=== PATIENT | male | born 1960 | race Caucasian/White ===

== ENCOUNTER 2022-11-02 08:32 | Inpatient (IN) | payer OTHER ==
[~2022-11-02] VITALS: Ht 165.1 cm; Wt 79.8 kg
[2022-11-02 09:14] LABS: BASOPHILS # (AUTO) 0.1 K/uL (0.0-0.2); EOSINOPHILS # (AUTO) 0.2 K/uL (0.0-0.7); EOSINOPHILS % (AUTO) 1.6 % (0.0-6.0); HEMATOCRIT 24 % (39-51); HEMOGLOBIN 7.9 g/dL (13.5-17.5); LYMPHOCYTES # (AUTO) 0.7 K/uL (0.8-4.8); LYMPHOCYTES % (AUTO) 6.3 % (20.0-44.0); MEAN CORPUSCULAR HEMOGLOBIN 28 PG (26.0-33.0); MEAN CORPUSCULAR HGB CONC 33 g/dl (31.0-36.0); MEAN CORPUSCULAR VOLUME 86 fL (80-96); MONOCYTES # (AUTO) 0.5 K/uL (0.1-1.30); MONOCYTES % (AUTO) 4.9 % (2.0-12.0); NEUTROPHILS # (AUTO) 9.6 K/uL (1.8-8.9); NEUTROPHILS % (AUTO) 86.2 % (43.0-81.0); PLATELET COUNT (AUTO) 308 K/uL (150-450); RED BLOOD CELL COUNT(AUTO) 2.82 MIL/uL (4.5-6.0); RED CELL DISTRIBUTION WIDTH 18.3 % (11.5-15.0); WHITE BLOOD COUNT (AUTO) 11.1 K/uL (4.3-11.0)
[2022-11-02 09:31] LABS: CALCIUM, SERUM 8.1 mg/dL (8.5-10.1); CREATININE 2.4 mg/dL (0.6-1.3); POTASSIUM 4.4 mmol/L (3.5-5.1)
[2022-11-02 09:37] LABS: ALBUMIN 1.7 g/dL (3.4-5.0); BILIRUBIN,DIRECT 0.3 mg/dL (0.0-0.2); BILIRUBIN,TOTAL 0.6 mg/dL (0.2-1.0); INR 1.52 (0.91-1.10); PARTIAL THROMBOPLASTIN TIME 32.3 SEC (24.3-34.3); PROTHROMBIN TIME 15.6 SECS (9.2-11.1); TOTAL PROTEIN, SERUM 7.1 g/dL (6.4-8.2)
[2022-11-02] MEDS ORDERED: CLOP75TA15 PO (09:43)
[2022-11-02] MEDS ORDERED: PROTEIN LIQUID PO (09:43)
[2022-11-02] MEDS ORDERED: OXYC5TAB3 PO (09:43)
[2022-11-02] MEDS ORDERED: POVI3780 TP (09:43)
[2022-11-02] MEDS ORDERED: PETR113O TP (09:43)
[2022-11-02] MEDS ORDERED: GABA-532 PO (09:43)
[2022-11-02] MEDS ORDERED: ASPI-992 PO (09:43)
[2022-11-02] MEDS ORDERED: INSU100V39 SQ (09:43)
[2022-11-02] MEDS ORDERED: CARV3.122 PO (09:43)
[2022-11-02] MEDS ORDERED: ASCO-340 PO (09:43)
[2022-11-02] MEDS ORDERED: FERR325T23 PO (09:43)
[2022-11-02] MEDS ORDERED: ZINC220C6 PO (09:43)
[2022-11-02] MEDS ORDERED: MULT-213 PO (09:43)
[2022-11-02] MEDS ORDERED: MIDO10TA PO (09:43)
[2022-11-02] MEDS ORDERED: MENT113O6 TP (09:43)
[2022-11-02] MEDS ORDERED: INSU100V7 SQ (09:43)
[2022-11-02] MEDS ORDERED: PANT40TA2 PO (09:43)
[2022-11-02] MEDS ORDERED: ONDANSETRON HCL/PF 4 MG/2 ML VIAL IVP PRN (15:00)
[2022-11-02] MEDS ORDERED: ACETAMINOPHEN 325 MG TABLET PO PRN (15:00)
[2022-11-02] MEDS ORDERED: ZOLPIDEM TARTRATE 5 MG TABLET PO PRN (15:00)
[2022-11-02] MEDS ORDERED: Z GUARD REMEDY 4 OZ OINT TP PRN (15:00)
[2022-11-02] MEDS ORDERED: MAG HYDROX/AL HYDROX/SIMETH 30 ML UDC PO PRN (15:00)
[2022-11-02] MEDS ORDERED: MAGNESIUM HYDROXIDE 30 ML UDC PO PRN (15:00)
[2022-11-02 16:00] VITALS: BP 86/64; TEMP 98.1; O2SAT 100
[2022-11-02 16:48] LABS: HEMOGLOBIN 5.8 g/dL (13.5-17.5)
[2022-11-02] MEDS ORDERED: FERROUS SULFATE (325 MG) 325 MG/TAB TABLET PO SCH (17:30)
[2022-11-02] MEDS ORDERED: DESMOPRESSIN 20 MCG in IV NS 0.9% 50 ML IV ONE (18:00)
[2022-11-02 20:00] VITALS: BP 91/57; TEMP 97.7; O2SAT 100
[2022-11-02] MEDS: GABAPENTIN 100 MG CAPSULE PO SCH (23:11)
[2022-11-03] VITALS (10 sets, daily range): BP systolic 90–103; BP diastolic 55–65; TEMP 97.3–98.2; O2SAT 94–100
[2022-11-03 00:12] LABS: HEMOGLOBIN 5.9 g/dL (13.5-17.5)
[2022-11-03 05:46] LABS: BASOPHILS % (AUTO) 0.3 % (0.0-2.0); EOSINOPHILS # (AUTO) 0.1 K/uL (0.0-0.7); EOSINOPHILS % (AUTO) 0.5 % (0.0-6.0); HEMATOCRIT 22 % (39-51); LYMPHOCYTES # (AUTO) 0.9 K/uL (0.8-4.8); LYMPHOCYTES % (AUTO) 8.4 % (20.0-44.0); MEAN CORPUSCULAR HEMOGLOBIN 28 PG (26.0-33.0); MEAN CORPUSCULAR HGB CONC 32 g/dl (31.0-36.0); MEAN CORPUSCULAR VOLUME 87 fL (80-96); MONOCYTES # (AUTO) 0.6 K/uL (0.1-1.30); MONOCYTES % (AUTO) 5.7 % (2.0-12.0); NEUTROPHILS # (AUTO) 9.4 K/uL (1.8-8.9); NEUTROPHILS % (AUTO) 85.1 % (43.0-81.0); PLATELET COUNT (AUTO) 173 K/uL (150-450); RED BLOOD CELL COUNT(AUTO) 2.52 MIL/uL (4.5-6.0); RED CELL DISTRIBUTION WIDTH 17.7 % (11.5-15.0)
[2022-11-03 06:00] LABS: CALCIUM, SERUM 8.1 mg/dL (8.5-10.1); CREATININE 2.5 mg/dL (0.6-1.3); MAGNESIUM 2.2 mg/dL (1.8-2.4); PHOSPHORUS 7.1 mg/dL (2.5-4.9); POTASSIUM 5.7 mmol/L (3.5-5.1)
[2022-11-03] MEDS ORDERED: PANTOPRAZOLE 40 MG TABLET.DR PO SCH (07:30)
[2022-11-03] MEDS: ZINC SULFATE 220 MG CAPSULE PO SCH (08:56)
[2022-11-03] MEDS: MIDODRINE HCL (5MG) 5 MG TABLET PO SCH ×3 (08:56→18:00)
[2022-11-03] MEDS: MULTIVIT W/MINERALS 1 TAB TABLET PO SCH (08:56)
[2022-11-03] MEDS: GABAPENTIN 100 MG CAPSULE PO SCH ×2 (08:56→21:28)
[2022-11-03] MEDS: ASCORBIC ACID 500 MG TABLET PO SCH (08:57)
[2022-11-03] MEDS: CARVEDILOL 3.125 MG TABLET PO SCH ×2 (09:00→17:00)
[2022-11-03] MEDS: PROSOURCE / PROSTAT (PYXIS) 30 ML UDC PO SCH (09:04)
[2022-11-03] MEDS: INSULIN GLARGINE, 100 UNIT/ML CARTRIDGE SQ SCH (09:08)
[2022-11-03] MEDS: VITS A AND D/WHITE PET/LANOLIN 5 GM PACKET TP SCH (10:05)
[2022-11-03] MEDS: DAKINS QUARTER STRENGTH (0.125%) 480 ML BOTTLE TOP SCH (10:05)
[2022-11-03] MEDS: ZINC OXIDE 30 GM TUBE TP SCH (10:06)
[2022-11-03] MEDS ORDERED: ALBUMIN 25% 12.5 GM/50 ML BOTTLE IV ONE (11:30)
[2022-11-03] MEDS ORDERED: SODIUM POLYSTYRENE SULFONATE 15 G/60 ML BOTTLE PO ONE ×2 (11:30→17:00)
[2022-11-03] MEDS ORDERED: ALBUMIN 25% 25 GM in PREMIX 1 EA IV ONE (12:00)
[2022-11-03 16:26] LABS: CALCIUM, SERUM 8.5 mg/dL (8.5-10.1); CREATININE 2.5 mg/dL (0.6-1.3); POTASSIUM 5.1 mmol/L (3.5-5.1)
[2022-11-03] MEDS: POVIDONE IODINE TOP SCH (18:03)
[2022-11-03 23:18] LABS: HEMOGLOBIN 6.8 g/dL (13.5-17.5)
[2022-11-04] VITALS (7 sets, daily range): BP systolic 85–125; BP diastolic 57–80; TEMP 97.5–98.3; O2SAT 95–100
[2022-11-04 00:04] LABS: OCCULT BLOOD STOOL POSITIVE (NEGATIVE)
[2022-11-04 04:13] LABS: BASOPHILS # (AUTO) 0.1 K/uL (0.0-0.2); BASOPHILS % (AUTO) 0.7 % (0.0-2.0); EOSINOPHILS # (AUTO) 0.2 K/uL (0.0-0.7); EOSINOPHILS % (AUTO) 1.9 % (0.0-6.0); HEMATOCRIT 24 % (39-51); LYMPHOCYTES # (AUTO) 0.5 K/uL (0.8-4.8); LYMPHOCYTES % (AUTO) 5.1 % (20.0-44.0); MEAN CORPUSCULAR HEMOGLOBIN 29 PG (26.0-33.0); MEAN CORPUSCULAR HGB CONC 33 g/dl (31.0-36.0); MEAN CORPUSCULAR VOLUME 87 fL (80-96); MONOCYTES # (AUTO) 0.5 K/uL (0.1-1.30); MONOCYTES % (AUTO) 4.6 % (2.0-12.0); NEUTROPHILS % (AUTO) 87.7 % (43.0-81.0); PLATELET COUNT (AUTO) 144 K/uL (150-450); RED BLOOD CELL COUNT(AUTO) 2.76 MIL/uL (4.5-6.0); RED CELL DISTRIBUTION WIDTH 17.9 % (11.5-15.0); WHITE BLOOD COUNT (AUTO) 10.2 K/uL (4.3-11.0)
[2022-11-04 04:19] LABS: CALCIUM, SERUM 8.4 mg/dL (8.5-10.1); CREATININE 2.2 mg/dL (0.6-1.3); MAGNESIUM 2.1 mg/dL (1.8-2.4); PHOSPHORUS 5.9 mg/dL (2.5-4.9); POTASSIUM 4.9 mmol/L (3.5-5.1)
[2022-11-04] MEDS: PANTOPRAZOLE 40 MG VIAL IV SCH ×3 (08:38→17:42)
[2022-11-04] MEDS: CARVEDILOL 3.125 MG TABLET PO SCH ×2 (09:00→17:43)
[2022-11-04] MEDS: MIDODRINE HCL (5MG) 5 MG TABLET PO SCH ×3 (09:05→17:00)
[2022-11-04] MEDS: MULTIVIT W/MINERALS 1 TAB TABLET PO SCH (09:07)
[2022-11-04] MEDS: ZINC SULFATE 220 MG CAPSULE PO SCH (09:07)
[2022-11-04] MEDS: ASCORBIC ACID 500 MG TABLET PO SCH (09:07)
[2022-11-04] MEDS: GABAPENTIN 100 MG CAPSULE PO SCH ×2 (09:07→20:49)
[2022-11-04] MEDS: PROSOURCE / PROSTAT (PYXIS) 30 ML UDC PO SCH (09:17)
[2022-11-04] MEDS: DAKINS QUARTER STRENGTH (0.125%) 480 ML BOTTLE TOP SCH (09:18)
[2022-11-04] MEDS: ZINC OXIDE 30 GM TUBE TP SCH (09:20)
[2022-11-04] MEDS: VITS A AND D/WHITE PET/LANOLIN 5 GM PACKET TP SCH (09:20)
[2022-11-04] MEDS: POVIDONE IODINE TOP SCH (09:23)
[2022-11-04 09:26] LABS: ALBUMIN 2.5 g/dL (3.4-5.0); BILIRUBIN,DIRECT 0.6 mg/dL (0.0-0.2); BILIRUBIN,TOTAL 1.3 mg/dL (0.2-1.0); TOTAL PROTEIN, SERUM 6.8 g/dL (6.4-8.2)
[2022-11-04] MEDS: INSULIN GLARGINE, 100 UNIT/ML CARTRIDGE SQ SCH (09:41)
[2022-11-04 14:32] LABS: HEMOGLOBIN 9.4 g/dL (13.5-17.5)
[2022-11-04] MEDS: ARGININE/GLUTAMINE/CALCIUM BMB 1 EACH POWD.PACK PO SCH (17:43)
[2022-11-04 22:29] LABS: HEMOGLOBIN 8.9 g/dL (13.5-17.5)
[2022-11-05 00:30] VITALS: BP 106/73; TEMP 98.1; O2SAT 96
[2022-11-05 05:51] LABS: BASOPHILS # (AUTO) 0.1 K/uL (0.0-0.2); BASOPHILS % (AUTO) 0.6 % (0.0-2.0); EOSINOPHILS # (AUTO) 0.2 K/uL (0.0-0.7); EOSINOPHILS % (AUTO) 2.6 % (0.0-6.0); HEMATOCRIT 27 % (39-51); HEMOGLOBIN 8.9 g/dL (13.5-17.5); LYMPHOCYTES # (AUTO) 0.7 K/uL (0.8-4.8); LYMPHOCYTES % (AUTO) 7.2 % (20.0-44.0); MEAN CORPUSCULAR HEMOGLOBIN 29 PG (26.0-33.0); MEAN CORPUSCULAR HGB CONC 34 g/dl (31.0-36.0); MEAN CORPUSCULAR VOLUME 87 fL (80-96); MONOCYTES # (AUTO) 0.6 K/uL (0.1-1.30); MONOCYTES % (AUTO) 6.6 % (2.0-12.0); NEUTROPHILS # (AUTO) 7.6 K/uL (1.8-8.9); PLATELET COUNT (AUTO) 151 K/uL (150-450); RED BLOOD CELL COUNT(AUTO) 3.08 MIL/uL (4.5-6.0); RED CELL DISTRIBUTION WIDTH 18.1 % (11.5-15.0); WHITE BLOOD COUNT (AUTO) 9.2 K/uL (4.3-11.0)
[2022-11-05 06:12] LABS: ALBUMIN 2.4 g/dL (3.4-5.0); BILIRUBIN,TOTAL 0.8 mg/dL (0.2-1.0); CALCIUM, SERUM 8.4 mg/dL (8.5-10.1); POTASSIUM 3.8 mmol/L (3.5-5.1); TOTAL PROTEIN, SERUM 6.9 g/dL (6.4-8.2)
[2022-11-05] MEDS ORDERED: LIDOCAINE 1%-EPI 1:100,000 50 ML VIAL IJ ONE (07:30)
[2022-11-05] MEDS ORDERED: SILVER NITRATE APPLICATOR 1 EA BOX TP SCH (07:30)
[2022-11-05 08:00] VITALS: BP 99/66; TEMP 98.2; O2SAT 100
[2022-11-05] MEDS: CARVEDILOL 3.125 MG TABLET PO SCH ×2 (09:00→17:55)
[2022-11-05] MEDS: MULTIVIT W/MINERALS 1 TAB TABLET PO SCH (10:32)
[2022-11-05] MEDS: ASCORBIC ACID 500 MG TABLET PO SCH (10:32)
[2022-11-05] MEDS: PANTOPRAZOLE 40 MG VIAL IV SCH (10:32)
[2022-11-05] MEDS: MIDODRINE HCL (5MG) 5 MG TABLET PO SCH ×3 (10:33→17:00)
[2022-11-05] MEDS: GABAPENTIN 100 MG CAPSULE PO SCH ×2 (10:33→20:43)
[2022-11-05] MEDS: ZINC SULFATE 220 MG CAPSULE PO SCH (10:33)
[2022-11-05] MEDS: PROSOURCE / PROSTAT (PYXIS) 30 ML UDC PO SCH (10:35)
[2022-11-05] MEDS: ARGININE/GLUTAMINE/CALCIUM BMB 1 EACH POWD.PACK PO SCH ×2 (10:35→17:54)
[2022-11-05] MEDS: DAKINS QUARTER STRENGTH (0.125%) 480 ML BOTTLE TOP SCH (10:37)
[2022-11-05] MEDS: POVIDONE IODINE TOP SCH (10:38)
[2022-11-05] MEDS: VITS A AND D/WHITE PET/LANOLIN 5 GM PACKET TP SCH (10:38)
[2022-11-05] MEDS: ZINC OXIDE 30 GM TUBE TP SCH (10:38)
[2022-11-05] MEDS: INSULIN GLARGINE, 100 UNIT/ML CARTRIDGE SQ SCH (10:45)
[2022-11-05] MEDS ORDERED: PANT40TA49 PO (12:39)
[2022-11-05 14:45] LABS: HEMOGLOBIN 8.9 g/dL (13.5-17.5)
[2022-11-05 16:00] VITALS: BP 104/21; TEMP 98.2; O2SAT 100
[2022-11-05] MEDS: PANTOPRAZOLE 40 MG TABLET.DR PO SCH (17:55)
[2022-11-05 20:00] VITALS: BP 115/71; TEMP 97.9; O2SAT 100
[2022-11-05 22:38] LABS: HEMOGLOBIN 8.6 g/dL (13.5-17.5)
[2022-11-06] VITALS: BP 110/75; TEMP 97.3; O2SAT 96
[2022-11-06 04:00] VITALS: BP 102/76; TEMP 97.7; O2SAT 99
[2022-11-06 06:21] LABS: BASOPHILS % (AUTO) 0.4 % (0.0-2.0); EOSINOPHILS # (AUTO) 0.1 K/uL (0.0-0.7); EOSINOPHILS % (AUTO) 1.1 % (0.0-6.0); HEMATOCRIT 25 % (39-51); HEMOGLOBIN 8.4 g/dL (13.5-17.5); LYMPHOCYTES # (AUTO) 0.8 K/uL (0.8-4.8); LYMPHOCYTES % (AUTO) 7.3 % (20.0-44.0); MEAN CORPUSCULAR HEMOGLOBIN 29 PG (26.0-33.0); MEAN CORPUSCULAR HGB CONC 33 g/dl (31.0-36.0); MEAN CORPUSCULAR VOLUME 87 fL (80-96); MONOCYTES # (AUTO) 0.7 K/uL (0.1-1.30); MONOCYTES % (AUTO) 6.9 % (2.0-12.0); NEUTROPHILS # (AUTO) 8.7 K/uL (1.8-8.9); NEUTROPHILS % (AUTO) 84.3 % (43.0-81.0); PLATELET COUNT (AUTO) 137 K/uL (150-450); RED CELL DISTRIBUTION WIDTH 17.7 % (11.5-15.0); WHITE BLOOD COUNT (AUTO) 10.3 K/uL (4.3-11.0)
[2022-11-06 08:00] VITALS: BP 104/72; TEMP 97.5; O2SAT 99
[2022-11-06 08:20] LABS: CALCIUM, SERUM 7.8 mg/dL (8.5-10.1); CREATININE 2.1 mg/dL (0.6-1.3)
[2022-11-06] MEDS: ZINC SULFATE 220 MG CAPSULE PO SCH ×2 (08:51→09:00)
[2022-11-06] MEDS: MULTIVIT W/MINERALS 1 TAB TABLET PO SCH ×2 (08:51→09:00)
[2022-11-06] MEDS: MIDODRINE HCL (5MG) 5 MG TABLET PO SCH ×4 (08:51→16:46)
[2022-11-06] MEDS: ASCORBIC ACID 500 MG TABLET PO SCH ×2 (08:51→09:00)
[2022-11-06] MEDS: PANTOPRAZOLE 40 MG TABLET.DR PO SCH ×3 (08:51→18:08)
[2022-11-06] MEDS: CARVEDILOL 3.125 MG TABLET PO SCH ×2 (08:52→18:07)
[2022-11-06] MEDS: PROSOURCE / PROSTAT (PYXIS) 30 ML UDC PO SCH ×2 (08:53→09:00)
[2022-11-06] MEDS: ARGININE/GLUTAMINE/CALCIUM BMB 1 EACH POWD.PACK PO SCH ×3 (08:53→18:08)
[2022-11-06] MEDS: GABAPENTIN 100 MG CAPSULE PO SCH ×3 (08:53→22:00)
[2022-11-06] MEDS: INSULIN GLARGINE, 100 UNIT/ML CARTRIDGE SQ SCH ×2 (09:00→18:08)
[2022-11-06] MEDS: VITS A AND D/WHITE PET/LANOLIN 5 GM PACKET TP SCH (09:57)
[2022-11-06] MEDS: ZINC OXIDE 30 GM TUBE TP SCH (09:57)
[2022-11-06] MEDS: POVIDONE IODINE TOP SCH (09:57)
[2022-11-06] MEDS: DAKINS QUARTER STRENGTH (0.125%) 480 ML BOTTLE TOP SCH (09:57)
[2022-11-06] MEDS ORDERED: DEXTROSE 50%-WATER 50 ML DISP.SYRIN IV PRN (10:30)
[2022-11-06 10:31] LABS: ALBUMIN 2.1 g/dL (3.4-5.0); BILIRUBIN,TOTAL 0.6 mg/dL (0.2-1.0); TOTAL PROTEIN, SERUM 6.7 g/dL (6.4-8.2)
[2022-11-06] MEDS ORDERED: LACTULOSE 10 G/15 ML UDC (PYXIS) PR SCH (12:00)
[2022-11-06] MEDS: BLOOD SUGAR DIAGNOSTIC 1 EACH STRIP IN SCH ×3 (12:37→22:45)
[2022-11-06] MEDS: INSULIN REGULAR, HUMAN 100 UNIT/ML 3 ML VIAL SQ PRN ×2 (12:48→18:10)
[2022-11-06] MEDS: LACTULOSE UDC 200 G in SODIUM CHLORIDE IRRIG SOLUTION 400 ML IR SCH ×4 (13:46→22:00)
[2022-11-06 14:25] LABS: HEMOGLOBIN 8.8 g/dL (13.5-17.5)
[2022-11-06 16:00] VITALS: BP 116/83; TEMP 98.4; O2SAT 96
[2022-11-06 19:30] VITALS: BP 128/77; TEMP 97; O2SAT 99
[2022-11-06 22:35] LABS: HEMOGLOBIN 9.2 g/dL (13.5-17.5)
[2022-11-07 05:57] LABS: BASOPHILS # (AUTO) 0.1 K/uL (0.0-0.2); BASOPHILS % (AUTO) 0.8 % (0.0-2.0); EOSINOPHILS # (AUTO) 0.1 K/uL (0.0-0.7); EOSINOPHILS % (AUTO) 1.5 % (0.0-6.0); HEMATOCRIT 28 % (39-51); LYMPHOCYTES # (AUTO) 0.8 K/uL (0.8-4.8); LYMPHOCYTES % (AUTO) 8.8 % (20.0-44.0); MEAN CORPUSCULAR HEMOGLOBIN 29 PG (26.0-33.0); MEAN CORPUSCULAR HGB CONC 33 g/dl (31.0-36.0); MEAN CORPUSCULAR VOLUME 90 fL (80-96); MONOCYTES # (AUTO) 0.6 K/uL (0.1-1.30); MONOCYTES % (AUTO) 6.9 % (2.0-12.0); NEUTROPHILS # (AUTO) 7.5 K/uL (1.8-8.9); PLATELET COUNT (AUTO) 125 K/uL (150-450); RED BLOOD CELL COUNT(AUTO) 3.09 MIL/uL (4.5-6.0); RED CELL DISTRIBUTION WIDTH 18.7 % (11.5-15.0); WHITE BLOOD COUNT (AUTO) 9.2 K/uL (4.3-11.0)
[2022-11-07 06:26] LABS: ALBUMIN 1.9 g/dL (3.4-5.0); BILIRUBIN,TOTAL 0.8 mg/dL (0.2-1.0); CALCIUM, SERUM 8.3 mg/dL (8.5-10.1); CREATININE 1.9 mg/dL (0.6-1.3); POTASSIUM 3.9 mmol/L (3.5-5.1); TOTAL PROTEIN, SERUM 6.7 g/dL (6.4-8.2)
[2022-11-07] MEDS: BLOOD SUGAR DIAGNOSTIC 1 EACH STRIP IN SCH ×4 (07:37→21:49)
[2022-11-07 08:00] VITALS: BP 99/70; TEMP 97.8; O2SAT 99
[2022-11-07] MEDS: MULTIVIT W/MINERALS 1 TAB TABLET PO SCH (08:36)
[2022-11-07] MEDS: RIFAXIMIN 550 MG TABLET PO SCH ×2 (08:36→16:07)
[2022-11-07] MEDS: MIDODRINE HCL (5MG) 5 MG TABLET PO SCH ×3 (08:37→16:07)
[2022-11-07] MEDS: GABAPENTIN 100 MG CAPSULE PO SCH ×2 (08:37→21:09)
[2022-11-07] MEDS: ASCORBIC ACID 500 MG TABLET PO SCH (08:37)
[2022-11-07] MEDS: CARVEDILOL 3.125 MG TABLET PO SCH ×2 (08:37→16:08)
[2022-11-07] MEDS: ZINC SULFATE 220 MG CAPSULE PO SCH (08:37)
[2022-11-07] MEDS: PANTOPRAZOLE 40 MG TABLET.DR PO SCH ×2 (08:37→16:07)
[2022-11-07] MEDS: ARGININE/GLUTAMINE/CALCIUM BMB 1 EACH POWD.PACK PO SCH ×2 (08:38→16:09)
[2022-11-07] MEDS: PROSOURCE / PROSTAT (PYXIS) 30 ML UDC PO SCH (08:38)
[2022-11-07] MEDS: LACTULOSE 10 G/15 ML UDC (PYXIS) PO SCH ×2 (08:40→16:06)
[2022-11-07] MEDS: DAKINS QUARTER STRENGTH (0.125%) 480 ML BOTTLE TOP SCH (09:06)
[2022-11-07] MEDS: ZINC OXIDE 30 GM TUBE TP SCH (09:07)
[2022-11-07] MEDS: VITS A AND D/WHITE PET/LANOLIN 5 GM PACKET TP SCH (09:07)
[2022-11-07] MEDS: INSULIN GLARGINE, 100 UNIT/ML CARTRIDGE SQ SCH ×2 (09:18→17:21)
[2022-11-07] MEDS: INSULIN REGULAR, HUMAN 100 UNIT/ML 3 ML VIAL SQ PRN ×3 (12:23→21:52)
[2022-11-07] MEDS: POVIDONE-IODINE OINT 28.4 GM TUBE TP SCH ×2 (12:55→16:12)
[2022-11-07 16:09] VITALS: BP 115/68; TEMP 98.2; O2SAT 99
[2022-11-07 20:00] VITALS: BP 120/74; TEMP 97.7; O2SAT 100
[2022-11-08] VITALS: BP 104/71; TEMP 97.3; O2SAT 98
[2022-11-08 04:00] VITALS: BP 104/67; TEMP 97.5; O2SAT 97
[2022-11-08 05:48] LABS: BASOPHILS # (AUTO) 0.1 K/uL (0.0-0.2); BASOPHILS % (AUTO) 0.6 % (0.0-2.0); EOSINOPHILS # (AUTO) 0.2 K/uL (0.0-0.7); EOSINOPHILS % (AUTO) 2.2 % (0.0-6.0); HEMATOCRIT 25 % (39-51); HEMOGLOBIN 8.4 g/dL (13.5-17.5); LYMPHOCYTES # (AUTO) 0.9 K/uL (0.8-4.8); LYMPHOCYTES % (AUTO) 9.5 % (20.0-44.0); MEAN CORPUSCULAR HEMOGLOBIN 29 PG (26.0-33.0); MEAN CORPUSCULAR HGB CONC 33 g/dl (31.0-36.0); MEAN CORPUSCULAR VOLUME 88 fL (80-96); MONOCYTES # (AUTO) 0.8 K/uL (0.1-1.30); MONOCYTES % (AUTO) 8.1 % (2.0-12.0); NEUTROPHILS # (AUTO) 7.5 K/uL (1.8-8.9); NEUTROPHILS % (AUTO) 79.6 % (43.0-81.0); PLATELET COUNT (AUTO) 141 K/uL (150-450); RED BLOOD CELL COUNT(AUTO) 2.86 MIL/uL (4.5-6.0); RED CELL DISTRIBUTION WIDTH 18.5 % (11.5-15.0); WHITE BLOOD COUNT (AUTO) 9.4 K/uL (4.3-11.0)
[2022-11-08 06:03] LABS: ALBUMIN 1.9 g/dL (3.4-5.0); BILIRUBIN,TOTAL 0.5 mg/dL (0.2-1.0); CALCIUM, SERUM 7.9 mg/dL (8.5-10.1); POTASSIUM 3.9 mmol/L (3.5-5.1); TOTAL PROTEIN, SERUM 6.5 g/dL (6.4-8.2)
[2022-11-08] MEDS: BLOOD SUGAR DIAGNOSTIC 1 EACH STRIP IN SCH ×4 (06:06→22:08)
[2022-11-08] MEDS: INSULIN REGULAR, HUMAN 100 UNIT/ML 3 ML VIAL SQ PRN ×2 (06:07→22:08)
[2022-11-08 08:00] VITALS: BP 106/67; TEMP 97.5; O2SAT 100
[2022-11-08] MEDS: GABAPENTIN 100 MG CAPSULE PO SCH ×2 (08:45→21:10)
[2022-11-08] MEDS: MIDODRINE HCL (5MG) 5 MG TABLET PO SCH ×3 (08:45→17:03)
[2022-11-08] MEDS: LACTULOSE 10 G/15 ML UDC (PYXIS) PO SCH ×2 (08:45→17:03)
[2022-11-08] MEDS: CARVEDILOL 3.125 MG TABLET PO SCH ×3 (08:46→17:00)
[2022-11-08] MEDS: PANTOPRAZOLE 40 MG TABLET.DR PO SCH ×2 (08:46→17:04)
[2022-11-08] MEDS: RIFAXIMIN 550 MG TABLET PO SCH ×2 (08:46→17:04)
[2022-11-08] MEDS: MULTIVIT W/MINERALS 1 TAB TABLET PO SCH (08:46)
[2022-11-08] MEDS: ZINC SULFATE 220 MG CAPSULE PO SCH (08:47)
[2022-11-08] MEDS: ASCORBIC ACID 500 MG TABLET PO SCH (08:47)
[2022-11-08] MEDS: ARGININE/GLUTAMINE/CALCIUM BMB 1 EACH POWD.PACK PO SCH ×2 (09:21→17:04)
[2022-11-08] MEDS: PROSOURCE / PROSTAT (PYXIS) 30 ML UDC PO SCH (09:22)
[2022-11-08] MEDS: DAKINS QUARTER STRENGTH (0.125%) 480 ML BOTTLE TOP SCH (10:08)
[2022-11-08] MEDS: POVIDONE-IODINE OINT 28.4 GM TUBE TP SCH ×2 (10:09→19:03)
[2022-11-08] MEDS: VITS A AND D/WHITE PET/LANOLIN 5 GM PACKET TP SCH (10:09)
[2022-11-08] MEDS: ZINC OXIDE 30 GM TUBE TP SCH (10:10)
[2022-11-08] MEDS: oxyCODONE IR immediate release 5 MG PO PRN (10:54)
[2022-11-08 12:00] VITALS: BP 97/68; TEMP 97.5; O2SAT 99
[2022-11-08] MEDS: IV NS 0.9% 1,000 ML IV PRN (15:04)
[2022-11-08 16:00] VITALS: BP 100/75; TEMP 97.7; O2SAT 100
[2022-11-08] MEDS: INSULIN GLARGINE, 100 UNIT/ML CARTRIDGE SQ SCH (17:00)
[2022-11-08 20:00] VITALS: BP 111/67; TEMP 97.7; O2SAT 98
[2022-11-09] VITALS: BP 95/64; TEMP 97.9; O2SAT 97
[2022-11-09 04:00] VITALS: BP 111/72; TEMP 97.7; O2SAT 98
[2022-11-09] MEDS: BLOOD SUGAR DIAGNOSTIC 1 EACH STRIP IN SCH ×4 (06:05→21:13)
[2022-11-09] MEDS: INSULIN REGULAR, HUMAN 100 UNIT/ML 3 ML VIAL SQ PRN ×2 (06:05→21:15)
[2022-11-09 06:14] LABS: BASOPHILS # (AUTO) 0.1 K/uL (0.0-0.2); BASOPHILS % (AUTO) 0.7 % (0.0-2.0); EOSINOPHILS # (AUTO) 0.2 K/uL (0.0-0.7); EOSINOPHILS % (AUTO) 1.7 % (0.0-6.0); HEMATOCRIT 27 % (39-51); HEMOGLOBIN 8.9 g/dL (13.5-17.5); LYMPHOCYTES # (AUTO) 0.7 K/uL (0.8-4.8); LYMPHOCYTES % (AUTO) 7.3 % (20.0-44.0); MEAN CORPUSCULAR HEMOGLOBIN 29 PG (26.0-33.0); MEAN CORPUSCULAR HGB CONC 33 g/dl (31.0-36.0); MEAN CORPUSCULAR VOLUME 88 fL (80-96); MONOCYTES # (AUTO) 0.6 K/uL (0.1-1.30); MONOCYTES % (AUTO) 6.5 % (2.0-12.0); NEUTROPHILS # (AUTO) 7.7 K/uL (1.8-8.9); NEUTROPHILS % (AUTO) 83.8 % (43.0-81.0); PLATELET COUNT (AUTO) 140 K/uL (150-450); RED BLOOD CELL COUNT(AUTO) 3.07 MIL/uL (4.5-6.0); RED CELL DISTRIBUTION WIDTH 18.5 % (11.5-15.0); WHITE BLOOD COUNT (AUTO) 9.1 K/uL (4.3-11.0)
[2022-11-09 06:31] LABS: ALBUMIN 1.8 g/dL (3.4-5.0); BILIRUBIN,TOTAL 0.4 mg/dL (0.2-1.0); CALCIUM, SERUM 8.1 mg/dL (8.5-10.1); POTASSIUM 4.3 mmol/L (3.5-5.1); TOTAL PROTEIN, SERUM 6.5 g/dL (6.4-8.2)
[2022-11-09 08:00] VITALS: BP 92/67; TEMP 97.8; O2SAT 99
[2022-11-09] MEDS: LACTULOSE 10 G/15 ML UDC (PYXIS) PO SCH ×2 (09:00→17:00)
[2022-11-09] MEDS: INSULIN GLARGINE, 100 UNIT/ML CARTRIDGE SQ SCH ×2 (09:00→18:47)
[2022-11-09] MEDS: ARGININE/GLUTAMINE/CALCIUM BMB 1 EACH POWD.PACK PO SCH ×2 (09:00→17:00)
[2022-11-09] MEDS: VITS A AND D/WHITE PET/LANOLIN 5 GM PACKET TP SCH (09:00)
[2022-11-09] MEDS: PROSOURCE / PROSTAT (PYXIS) 30 ML UDC PO SCH (09:00)
[2022-11-09] MEDS: ASCORBIC ACID 500 MG TABLET PO SCH (09:03)
[2022-11-09] MEDS: RIFAXIMIN 550 MG TABLET PO SCH ×2 (09:03→18:44)
[2022-11-09] MEDS: MULTIVIT W/MINERALS 1 TAB TABLET PO SCH (09:03)
[2022-11-09] MEDS: PANTOPRAZOLE 40 MG TABLET.DR PO SCH ×2 (09:03→17:00)
[2022-11-09] MEDS: MIDODRINE HCL (5MG) 5 MG TABLET PO SCH ×3 (09:04→18:45)
[2022-11-09] MEDS: ZINC SULFATE 220 MG CAPSULE PO SCH (09:04)
[2022-11-09] MEDS: CARVEDILOL 3.125 MG TABLET PO SCH ×2 (09:04→18:44)
[2022-11-09] MEDS: GABAPENTIN 100 MG CAPSULE PO SCH ×2 (09:05→21:08)
[2022-11-09] MEDS: IV NS 0.9% 1,000 ML IV PRN (11:21)
[2022-11-09 12:00] VITALS: BP 107/66; TEMP 97.7; O2SAT 100
[2022-11-09] MEDS: ALBUMIN 25% 25 GM in PREMIX 1 EA IV PRN (12:41)
[2022-11-09] MEDS: DAKINS QUARTER STRENGTH (0.125%) 480 ML BOTTLE TOP SCH (13:35)
[2022-11-09] MEDS: POVIDONE-IODINE OINT 28.4 GM TUBE TP SCH ×2 (13:36→17:00)
[2022-11-09] MEDS: ZINC OXIDE 30 GM TUBE TP SCH (13:36)
[2022-11-09 16:00] VITALS: BP 104/65; TEMP 97.3; O2SAT 100
[2022-11-09 18:28] LABS: APPEARANCE,URINE SLIGHTLY CLOUDY (CLEAR); COLOR,URINE YELLOW (YELLOW)
[2022-11-09 18:30] LABS: BILIRUBIN,URINE NEGATIVE (NEGATIVE); BLOOD, URINE 3+ Ery/uL (NEGATIVE); KETONES,URINE NEGATIVE (NEGATIVE); LEUKOCYTE ESTERASE ,URINE 3+ (NEGATIVE); NITRITE, URINE NEGATIVE (NEGATIVE); PROTEIN,URINE NEGATIVE (NEGATIVE); UGLUCOSE NEGATIVE (NEGATIVE); UROBILINOGEN,URINE 0.2 EU/dL (0.2)
[2022-11-09 18:34] LABS: ADD URINE CULTURE YES; BACTERIA,URINE 4+ /HPF (None Seen); RBC,URINE 51-80 /HPF (0-2); SQUAMOUS EPITHELIAL CELL,UR 0-2 /HPF (None Seen); WBC,URINE 51-80 /HPF (0-3)
[2022-11-09 18:49] LABS: CREATININE, URINE 36.5 MG/DL (30.0-125.0); URINE TOTAL PROTEIN 27.3 mg/dL (0-11.9)
[2022-11-09 19:05] LABS: EOSINOPHIL,URINE None Seen
[2022-11-09 20:00] VITALS: BP 93/60; TEMP 98.2; O2SAT 100
[2022-11-10] VITALS (7 sets, daily range): BP systolic 86–108; BP diastolic 56–68; TEMP 97.5–97.7; O2SAT 97–100
[2022-11-10] MEDS: oxyCODONE IR immediate release 5 MG PO PRN (00:21)
[2022-11-10 06:27] LABS: BASOPHILS # (AUTO) 0.1 K/uL (0.0-0.2); BASOPHILS % (AUTO) 0.8 % (0.0-2.0); EOSINOPHILS # (AUTO) 0.2 K/uL (0.0-0.7); EOSINOPHILS % (AUTO) 2.1 % (0.0-6.0); HEMATOCRIT 26 % (39-51); HEMOGLOBIN 8.5 g/dL (13.5-17.5); LYMPHOCYTES # (AUTO) 0.7 K/uL (0.8-4.8); LYMPHOCYTES % (AUTO) 10.2 % (20.0-44.0); MEAN CORPUSCULAR HEMOGLOBIN 29 PG (26.0-33.0); MEAN CORPUSCULAR HGB CONC 33 g/dl (31.0-36.0); MEAN CORPUSCULAR VOLUME 88 fL (80-96); MONOCYTES # (AUTO) 0.5 K/uL (0.1-1.30); MONOCYTES % (AUTO) 7.4 % (2.0-12.0); NEUTROPHILS # (AUTO) 5.8 K/uL (1.8-8.9); NEUTROPHILS % (AUTO) 79.5 % (43.0-81.0); PLATELET COUNT (AUTO) 133 K/uL (150-450); RED BLOOD CELL COUNT(AUTO) 2.94 MIL/uL (4.5-6.0); WHITE BLOOD COUNT (AUTO) 7.3 K/uL (4.3-11.0)
[2022-11-10] MEDS: BLOOD SUGAR DIAGNOSTIC 1 EACH STRIP IN SCH ×4 (06:30→22:00)
[2022-11-10] MEDS: INSULIN REGULAR, HUMAN 100 UNIT/ML 3 ML VIAL SQ PRN ×4 (06:32→23:30)
[2022-11-10 07:07] LABS: BILIRUBIN,TOTAL 0.4 mg/dL (0.2-1.0); CALCIUM, SERUM 8.3 mg/dL (8.5-10.1); CREATININE 1.9 mg/dL (0.6-1.3); POTASSIUM 4.1 mmol/L (3.5-5.1); TOTAL PROTEIN, SERUM 6.3 g/dL (6.4-8.2)
[2022-11-10] MEDS: PANTOPRAZOLE 40 MG TABLET.DR PO SCH ×2 (08:41→16:36)
[2022-11-10] MEDS: ASCORBIC ACID 500 MG TABLET PO SCH (08:41)
[2022-11-10] MEDS: LACTULOSE 10 G/15 ML UDC (PYXIS) PO SCH ×2 (08:41→16:36)
[2022-11-10] MEDS: RIFAXIMIN 550 MG TABLET PO SCH ×3 (08:41→16:36)
[2022-11-10] MEDS: ZINC SULFATE 220 MG CAPSULE PO SCH (08:42)
[2022-11-10] MEDS: MIDODRINE HCL (5MG) 5 MG TABLET PO SCH ×3 (08:42→16:36)
[2022-11-10] MEDS: MULTIVIT W/MINERALS 1 TAB TABLET PO SCH (08:42)
[2022-11-10] MEDS: GABAPENTIN 100 MG CAPSULE PO SCH ×2 (08:42→22:04)
[2022-11-10] MEDS: PROSOURCE / PROSTAT (PYXIS) 30 ML UDC PO SCH (08:43)
[2022-11-10] MEDS: ARGININE/GLUTAMINE/CALCIUM BMB 1 EACH POWD.PACK PO SCH ×2 (08:43→16:36)
[2022-11-10] MEDS: CARVEDILOL 3.125 MG TABLET PO SCH ×2 (08:43→16:56)
[2022-11-10] MEDS: DAKINS QUARTER STRENGTH (0.125%) 480 ML BOTTLE TOP SCH (08:50)
[2022-11-10] MEDS: ZINC OXIDE 30 GM TUBE TP SCH (08:51)
[2022-11-10] MEDS: POVIDONE-IODINE OINT 28.4 GM TUBE TP SCH ×2 (08:51→17:30)
[2022-11-10] MEDS: IV NS 0.9% 1,000 ML IV PRN (08:54)
[2022-11-10] MEDS: INSULIN GLARGINE, 100 UNIT/ML CARTRIDGE SQ SCH ×2 (08:56→17:24)
[2022-11-10] MEDS: VITS A AND D/WHITE PET/LANOLIN 5 GM PACKET TP SCH (09:00)
[2022-11-10] MEDS ORDERED: RIFAXIMIN 550 MG TABLET PO SCH (09:00)
[2022-11-10] MEDS: ALBUMIN 25% 25 GM in PREMIX 1 EA IV PRN (12:24)
[2022-11-10] MEDS: CEFTRIAXONE 1 G in IV D5W 50 ML IV SCH (14:12)
[2022-11-11 06:15] LABS: BASOPHILS # (AUTO) 0.1 K/uL (0.0-0.2); BASOPHILS % (AUTO) 0.8 % (0.0-2.0); EOSINOPHILS # (AUTO) 0.1 K/uL (0.0-0.7); EOSINOPHILS % (AUTO) 1.4 % (0.0-6.0); HEMATOCRIT 27 % (39-51); HEMOGLOBIN 8.8 g/dL (13.5-17.5); LYMPHOCYTES # (AUTO) 0.9 K/uL (0.8-4.8); LYMPHOCYTES % (AUTO) 8.6 % (20.0-44.0); MEAN CORPUSCULAR HEMOGLOBIN 29 PG (26.0-33.0); MEAN CORPUSCULAR HGB CONC 33 g/dl (31.0-36.0); MEAN CORPUSCULAR VOLUME 88 fL (80-96); MONOCYTES # (AUTO) 0.7 K/uL (0.1-1.30); MONOCYTES % (AUTO) 6.7 % (2.0-12.0); NEUTROPHILS # (AUTO) 8.4 K/uL (1.8-8.9); NEUTROPHILS % (AUTO) 82.5 % (43.0-81.0); PLATELET COUNT (AUTO) 139 K/uL (150-450); RED BLOOD CELL COUNT(AUTO) 3.05 MIL/uL (4.5-6.0); RED CELL DISTRIBUTION WIDTH 18.9 % (11.5-15.0); WHITE BLOOD COUNT (AUTO) 10.2 K/uL (4.3-11.0)
[2022-11-11] MEDS: INSULIN REGULAR, HUMAN 100 UNIT/ML 3 ML VIAL SQ PRN ×4 (06:24→21:38)
[2022-11-11 06:35] LABS: BILIRUBIN,TOTAL 0.5 mg/dL (0.2-1.0); CREATININE 2.1 mg/dL (0.6-1.3); POTASSIUM 3.9 mmol/L (3.5-5.1); TOTAL PROTEIN, SERUM 6.7 g/dL (6.4-8.2)
[2022-11-11 07:00] VITALS: BP 103/67; TEMP 98.1; O2SAT 99
[2022-11-11] MEDS: BLOOD SUGAR DIAGNOSTIC 1 EACH STRIP IN SCH ×4 (07:40→21:24)
[2022-11-11] MEDS: CARVEDILOL 3.125 MG TABLET PO SCH ×2 (09:00→17:00)
[2022-11-11] MEDS: VITS A AND D/WHITE PET/LANOLIN 5 GM PACKET TP SCH (09:09)
[2022-11-11] MEDS: PROSOURCE / PROSTAT (PYXIS) 30 ML UDC PO SCH (09:10)
[2022-11-11] MEDS: ARGININE/GLUTAMINE/CALCIUM BMB 1 EACH POWD.PACK PO SCH ×2 (09:10→17:16)
[2022-11-11] MEDS: LACTULOSE 10 G/15 ML UDC (PYXIS) PO SCH ×2 (09:10→17:13)
[2022-11-11] MEDS: POVIDONE-IODINE OINT 28.4 GM TUBE TP SCH ×2 (09:12→17:16)
[2022-11-11] MEDS: ZINC OXIDE 30 GM TUBE TP SCH (09:12)
[2022-11-11] MEDS: DAKINS QUARTER STRENGTH (0.125%) 480 ML BOTTLE TOP SCH (09:15)
[2022-11-11] MEDS: GABAPENTIN 100 MG CAPSULE PO SCH ×2 (09:16→20:09)
[2022-11-11] MEDS: PANTOPRAZOLE 40 MG TABLET.DR PO SCH ×2 (09:16→17:14)
[2022-11-11] MEDS: MULTIVIT W/MINERALS 1 TAB TABLET PO SCH (09:18)
[2022-11-11] MEDS: ZINC SULFATE 220 MG CAPSULE PO SCH (09:23)
[2022-11-11] MEDS: ASCORBIC ACID 500 MG TABLET PO SCH (09:23)
[2022-11-11] MEDS: RIFAXIMIN 550 MG TABLET PO SCH ×2 (09:28→17:15)
[2022-11-11] MEDS: INSULIN GLARGINE, 100 UNIT/ML CARTRIDGE SQ SCH ×2 (09:43→17:40)
[2022-11-11] MEDS: MIDODRINE HCL (5MG) 5 MG TABLET PO SCH ×3 (09:47→17:16)
[2022-11-11] MEDS: CEFTRIAXONE 1 G in IV D5W 50 ML IV SCH (13:11)
[2022-11-11 16:00] VITALS: BP 105/69; TEMP 97.9; O2SAT 98
[2022-11-11 20:00] VITALS: BP 132/82; TEMP 98.6; O2SAT 99
[2022-11-12 05:48] LABS: BASOPHILS # (AUTO) 0.1 K/uL (0.0-0.2); BASOPHILS % (AUTO) 0.7 % (0.0-2.0); EOSINOPHILS # (AUTO) 0.1 K/uL (0.0-0.7); EOSINOPHILS % (AUTO) 1.4 % (0.0-6.0); HEMATOCRIT 29 % (39-51); HEMOGLOBIN 9.3 g/dL (13.5-17.5); LYMPHOCYTES # (AUTO) 1.3 K/uL (0.8-4.8); LYMPHOCYTES % (AUTO) 12.8 % (20.0-44.0); MEAN CORPUSCULAR HEMOGLOBIN 29 PG (26.0-33.0); MEAN CORPUSCULAR HGB CONC 32 g/dl (31.0-36.0); MEAN CORPUSCULAR VOLUME 89 fL (80-96); MONOCYTES # (AUTO) 0.8 K/uL (0.1-1.30); MONOCYTES % (AUTO) 7.5 % (2.0-12.0); NEUTROPHILS # (AUTO) 7.9 K/uL (1.8-8.9); NEUTROPHILS % (AUTO) 77.6 % (43.0-81.0); PLATELET COUNT (AUTO) 162 K/uL (150-450); RED BLOOD CELL COUNT(AUTO) 3.25 MIL/uL (4.5-6.0); RED CELL DISTRIBUTION WIDTH 18.8 % (11.5-15.0); WHITE BLOOD COUNT (AUTO) 10.2 K/uL (4.3-11.0)
[2022-11-12 06:09] LABS: ALBUMIN 1.9 g/dL (3.4-5.0); BILIRUBIN,TOTAL 0.5 mg/dL (0.2-1.0); CREATININE 2.2 mg/dL (0.6-1.3); PHOSPHORUS 4.5 mg/dL (2.5-4.9); POTASSIUM 4.3 mmol/L (3.5-5.1); TOTAL PROTEIN, SERUM 6.8 g/dL (6.4-8.2)
[2022-11-12] MEDS: BLOOD SUGAR DIAGNOSTIC 1 EACH STRIP IN SCH ×4 (06:34→22:01)
[2022-11-12] MEDS: INSULIN REGULAR, HUMAN 100 UNIT/ML 3 ML VIAL SQ PRN ×4 (06:35→22:00)
[2022-11-12 07:00] VITALS: BP 97/64; TEMP 97.9; O2SAT 100
[2022-11-12] MEDS: LACTULOSE 10 G/15 ML UDC (PYXIS) PO SCH ×2 (10:14→17:14)
[2022-11-12] MEDS: ASCORBIC ACID 500 MG TABLET PO SCH (10:15)
[2022-11-12] MEDS: ZINC SULFATE 220 MG CAPSULE PO SCH (10:15)
[2022-11-12] MEDS: RIFAXIMIN 550 MG TABLET PO SCH ×2 (10:15→17:16)
[2022-11-12] MEDS: MIDODRINE HCL (5MG) 5 MG TABLET PO SCH ×3 (10:16→17:16)
[2022-11-12] MEDS: PANTOPRAZOLE 40 MG TABLET.DR PO SCH ×2 (10:16→17:14)
[2022-11-12] MEDS: GABAPENTIN 100 MG CAPSULE PO SCH ×2 (10:16→20:27)
[2022-11-12] MEDS: CARVEDILOL 3.125 MG TABLET PO SCH ×2 (10:17→17:15)
[2022-11-12] MEDS: MULTIVIT W/MINERALS 1 TAB TABLET PO SCH (10:18)
[2022-11-12] MEDS: PROSOURCE / PROSTAT (PYXIS) 30 ML UDC PO SCH (10:19)
[2022-11-12] MEDS: ARGININE/GLUTAMINE/CALCIUM BMB 1 EACH POWD.PACK PO SCH ×2 (10:19→17:45)
[2022-11-12] MEDS: INSULIN GLARGINE, 100 UNIT/ML CARTRIDGE SQ SCH ×2 (10:32→18:03)
[2022-11-12] MEDS: ZINC OXIDE 30 GM TUBE TP SCH (10:38)
[2022-11-12] MEDS: POVIDONE-IODINE OINT 28.4 GM TUBE TP SCH ×2 (10:39→18:05)
[2022-11-12] MEDS: DAKINS QUARTER STRENGTH (0.125%) 480 ML BOTTLE TOP SCH ×2 (10:39→17:44)
[2022-11-12] MEDS: VITS A AND D/WHITE PET/LANOLIN 5 GM PACKET TP SCH ×2 (10:42→17:45)
[2022-11-12] MEDS: CEFTRIAXONE 1 G in IV D5W 50 ML IV SCH (14:28)
[2022-11-12 16:00] VITALS: BP 104/68; TEMP 97.9; O2SAT 100
[2022-11-12] MEDS: SULFAMETHOXAZOLE/TRIMETHOPRIM 10 ML in IV D5W 250 ML IV SCH (18:07)
[2022-11-12 20:00] VITALS: BP_SYST 110; BP_SYST 114; BP_DIAS 66; BP_DIAS 70; TEMP 97.6; TEMP 98; O2SAT 100; O2SAT 98
[2022-11-13 05:48] LABS: BASOPHILS % (AUTO) 0.6 % (0.0-2.0); HEMATOCRIT 28 % (39-51); LYMPHOCYTES % (AUTO) 8.9 % (20.0-44.0); MEAN CORPUSCULAR HEMOGLOBIN 28 PG (26.0-33.0); MEAN CORPUSCULAR HGB CONC 32 g/dl (31.0-36.0); MEAN CORPUSCULAR VOLUME 88 fL (80-96); MONOCYTES % (AUTO) 6.2 % (2.0-12.0); NEUTROPHILS % (AUTO) 83.3 % (43.0-81.0); PLATELET COUNT (AUTO) 164 K/uL (150-450); RED BLOOD CELL COUNT(AUTO) 3.18 MIL/uL (4.5-6.0); RED CELL DISTRIBUTION WIDTH 18.5 % (11.5-15.0); WHITE BLOOD COUNT (AUTO) 12.7 K/uL (4.3-11.0)
[2022-11-13 05:49] LABS: BASOPHILS # (AUTO) 0.1 K/uL (0.0-0.2); EOSINOPHILS # (AUTO) 0.1 K/uL (0.0-0.7); LYMPHOCYTES # (AUTO) 1.1 K/uL (0.8-4.8); MONOCYTES # (AUTO) 0.8 K/uL (0.1-1.30); NEUTROPHILS # (AUTO) 10.5 K/uL (1.8-8.9)
[2022-11-13 06:05] LABS: CREATININE 2.1 mg/dL (0.6-1.3); POTASSIUM 4.1 mmol/L (3.5-5.1)
[2022-11-13 06:22] LABS: ALBUMIN 1.8 g/dL (3.4-5.0); BILIRUBIN,TOTAL 0.3 mg/dL (0.2-1.0); TOTAL PROTEIN, SERUM 6.8 g/dL (6.4-8.2)
[2022-11-13] MEDS: BLOOD SUGAR DIAGNOSTIC 1 EACH STRIP IN SCH ×4 (06:44→22:09)
[2022-11-13] MEDS: INSULIN REGULAR, HUMAN 100 UNIT/ML 3 ML VIAL SQ PRN ×4 (06:46→22:11)
[2022-11-13 08:00] VITALS: BP 114/78; TEMP 98.6; O2SAT 96
[2022-11-13] MEDS: LACTULOSE 10 G/15 ML UDC (PYXIS) PO SCH ×2 (09:15→18:23)
[2022-11-13] MEDS: SULFAMETHOXAZOLE/TRIMETHOPRIM 10 ML in IV D5W 250 ML IV SCH (09:15)
[2022-11-13] MEDS: MIDODRINE HCL (5MG) 5 MG TABLET PO SCH ×3 (09:17→18:24)
[2022-11-13] MEDS: RIFAXIMIN 550 MG TABLET PO SCH ×2 (09:18→18:23)
[2022-11-13] MEDS: CARVEDILOL 3.125 MG TABLET PO SCH ×2 (09:18→18:24)
[2022-11-13] MEDS: GABAPENTIN 100 MG CAPSULE PO SCH ×2 (09:18→20:26)
[2022-11-13] MEDS: MULTIVIT W/MINERALS 1 TAB TABLET PO SCH (09:19)
[2022-11-13] MEDS: ASCORBIC ACID 500 MG TABLET PO SCH (09:19)
[2022-11-13] MEDS: ZINC SULFATE 220 MG CAPSULE PO SCH (09:19)
[2022-11-13] MEDS: PANTOPRAZOLE 40 MG TABLET.DR PO SCH ×2 (09:19→18:23)
[2022-11-13] MEDS: PROSOURCE / PROSTAT (PYXIS) 30 ML UDC PO SCH (09:20)
[2022-11-13] MEDS: ARGININE/GLUTAMINE/CALCIUM BMB 1 EACH POWD.PACK PO SCH ×2 (09:21→18:25)
[2022-11-13] MEDS: ZINC OXIDE 30 GM TUBE TP SCH (09:30)
[2022-11-13] MEDS: DAKINS QUARTER STRENGTH (0.125%) 480 ML BOTTLE TOP SCH (09:30)
[2022-11-13] MEDS: POVIDONE-IODINE OINT 28.4 GM TUBE TP SCH ×2 (09:30→18:25)
[2022-11-13] MEDS: INSULIN GLARGINE, 100 UNIT/ML CARTRIDGE SQ SCH ×2 (09:47→18:28)
[2022-11-13 16:00] VITALS: BP 109/71; TEMP 97.7; O2SAT 99
[2022-11-13] MEDS: MEROPENEM 1 G in IV NS 0.9% 100 ML IV SCH (18:23)
[2022-11-13 20:00] VITALS: BP 109/68; TEMP 98; O2SAT 94
[2022-11-13] MEDS: CLINDAMYCIN HCL 150 MG CAPSULE PO SCH (20:25)
[2022-11-14] MEDS: MEROPENEM 1 G in IV NS 0.9% 100 ML IV SCH ×2 (04:48→17:48)
[2022-11-14] MEDS: CLINDAMYCIN HCL 150 MG CAPSULE PO SCH ×3 (04:48→20:21)
[2022-11-14 05:51] LABS: BASOPHILS # (AUTO) 0.1 K/uL (0.0-0.2); BASOPHILS % (AUTO) 0.8 % (0.0-2.0); EOSINOPHILS # (AUTO) 0.2 K/uL (0.0-0.7); EOSINOPHILS % (AUTO) 1.6 % (0.0-6.0); HEMATOCRIT 28 % (39-51); HEMOGLOBIN 8.9 g/dL (13.5-17.5); LYMPHOCYTES # (AUTO) 1.2 K/uL (0.8-4.8); LYMPHOCYTES % (AUTO) 10.7 % (20.0-44.0); MEAN CORPUSCULAR HEMOGLOBIN 29 PG (26.0-33.0); MEAN CORPUSCULAR HGB CONC 32 g/dl (31.0-36.0); MEAN CORPUSCULAR VOLUME 89 fL (80-96); MONOCYTES # (AUTO) 0.8 K/uL (0.1-1.30); MONOCYTES % (AUTO) 7.4 % (2.0-12.0); NEUTROPHILS % (AUTO) 79.5 % (43.0-81.0); PLATELET COUNT (AUTO) 192 K/uL (150-450); RED BLOOD CELL COUNT(AUTO) 3.11 MIL/uL (4.5-6.0); RED CELL DISTRIBUTION WIDTH 18.8 % (11.5-15.0); WHITE BLOOD COUNT (AUTO) 11.3 K/uL (4.3-11.0)
[2022-11-14 06:21] LABS: ALBUMIN 1.7 g/dL (3.4-5.0); BILIRUBIN,TOTAL 0.4 mg/dL (0.2-1.0); CALCIUM, SERUM 7.9 mg/dL (8.5-10.1); CREATININE 2.3 mg/dL (0.6-1.3); POTASSIUM 4.2 mmol/L (3.5-5.1)
[2022-11-14] MEDS: BLOOD SUGAR DIAGNOSTIC 1 EACH STRIP IN SCH ×4 (06:31→21:41)
[2022-11-14] MEDS: INSULIN REGULAR, HUMAN 100 UNIT/ML 3 ML VIAL SQ PRN ×4 (06:41→21:48)
[2022-11-14 08:00] VITALS: BP 97/64; TEMP 97.7; O2SAT 99
[2022-11-14] MEDS: LACTULOSE 10 G/15 ML UDC (PYXIS) PO SCH ×2 (09:43→17:34)
[2022-11-14] MEDS: RIFAXIMIN 550 MG TABLET PO SCH ×2 (09:44→17:36)
[2022-11-14] MEDS: ZINC SULFATE 220 MG CAPSULE PO SCH (09:44)
[2022-11-14] MEDS: ASCORBIC ACID 500 MG TABLET PO SCH (09:44)
[2022-11-14] MEDS: MULTIVIT W/MINERALS 1 TAB TABLET PO SCH (09:44)
[2022-11-14] MEDS: MIDODRINE HCL (5MG) 5 MG TABLET PO SCH ×3 (09:46→17:35)
[2022-11-14] MEDS: GABAPENTIN 100 MG CAPSULE PO SCH ×2 (09:46→20:21)
[2022-11-14] MEDS: CARVEDILOL 3.125 MG TABLET PO SCH ×2 (09:46→17:36)
[2022-11-14] MEDS: ARGININE/GLUTAMINE/CALCIUM BMB 1 EACH POWD.PACK PO SCH ×2 (09:47→17:48)
[2022-11-14] MEDS: PROSOURCE / PROSTAT (PYXIS) 30 ML UDC PO SCH (09:47)
[2022-11-14] MEDS: INSULIN GLARGINE, 100 UNIT/ML CARTRIDGE SQ SCH ×2 (09:50→17:39)
[2022-11-14] MEDS: PANTOPRAZOLE 40 MG TABLET.DR PO SCH ×2 (09:51→17:36)
[2022-11-14] MEDS: POVIDONE-IODINE OINT 28.4 GM TUBE TP SCH ×2 (12:49→17:48)
[2022-11-14] MEDS: ZINC OXIDE 30 GM TUBE TP SCH (12:49)
[2022-11-14] MEDS: VITS A AND D/WHITE PET/LANOLIN 5 GM PACKET TP SCH (12:50)
[2022-11-14 16:00] VITALS: BP 112/80; TEMP 97.5; O2SAT 99
[2022-11-14 19:10] VITALS: BP 111/58; TEMP 98; O2SAT 100
[2022-11-14] MEDS ORDERED: SULFAMETH/TRIMETH 800/160 MG 1 UDTAB TABLET PO SCH (21:00)
[2022-11-15] MEDS: CLINDAMYCIN HCL 150 MG CAPSULE PO SCH ×3 (05:29→20:43)
[2022-11-15] MEDS: MEROPENEM 1 G in IV NS 0.9% 100 ML IV SCH ×2 (05:29→17:06)
[2022-11-15] MEDS: BLOOD SUGAR DIAGNOSTIC 1 EACH STRIP IN SCH ×4 (06:49→21:31)
[2022-11-15] MEDS: INSULIN REGULAR, HUMAN 100 UNIT/ML 3 ML VIAL SQ PRN ×4 (06:49→21:33)
[2022-11-15] MEDS: ASCORBIC ACID 500 MG TABLET PO SCH (08:15)
[2022-11-15] MEDS: MULTIVIT W/MINERALS 1 TAB TABLET PO SCH (08:15)
[2022-11-15] MEDS: LACTULOSE 10 G/15 ML UDC (PYXIS) PO SCH ×2 (08:15→16:11)
[2022-11-15] MEDS: MIDODRINE HCL (5MG) 5 MG TABLET PO SCH ×3 (08:16→16:10)
[2022-11-15] MEDS: PANTOPRAZOLE 40 MG TABLET.DR PO SCH ×2 (08:16→16:09)
[2022-11-15] MEDS: RIFAXIMIN 550 MG TABLET PO SCH ×2 (08:16→16:10)
[2022-11-15] MEDS: GABAPENTIN 100 MG CAPSULE PO SCH ×2 (08:16→20:43)
[2022-11-15] MEDS: CARVEDILOL 3.125 MG TABLET PO SCH ×2 (08:17→16:10)
[2022-11-15] MEDS: ZINC SULFATE 220 MG CAPSULE PO SCH (08:17)
[2022-11-15] MEDS: ARGININE/GLUTAMINE/CALCIUM BMB 1 EACH POWD.PACK PO SCH ×2 (08:19→16:11)
[2022-11-15] MEDS: PROSOURCE / PROSTAT (PYXIS) 30 ML UDC PO SCH (08:20)
[2022-11-15] MEDS: ZINC OXIDE 30 GM TUBE TP SCH (08:20)
[2022-11-15] MEDS: INSULIN GLARGINE, 100 UNIT/ML CARTRIDGE SQ SCH ×2 (09:18→17:02)
[2022-11-15] MEDS: DAKINS QUARTER STRENGTH (0.125%) 480 ML BOTTLE TOP SCH (10:01)
[2022-11-15] MEDS: POVIDONE-IODINE OINT 28.4 GM TUBE TP SCH ×2 (10:01→17:06)
[2022-11-15] MEDS: VITAMINS A AND D 56.7 GM TUBE TP SCH (10:01)
[2022-11-15 16:11] VITALS: BP 119/72; TEMP 97.9; O2SAT 96
[2022-11-15 21:25] VITALS: BP 126/75; TEMP 98.2; O2SAT 99
[2022-11-16] MEDS: CLINDAMYCIN HCL 150 MG CAPSULE PO SCH ×3 (04:02→20:30)
[2022-11-16] MEDS: MEROPENEM 1 G in IV NS 0.9% 100 ML IV SCH ×3 (04:03→16:16)
[2022-11-16 05:49] LABS: BASOPHILS # (AUTO) 0.1 K/uL (0.0-0.2); BASOPHILS % (AUTO) 0.9 % (0.0-2.0); EOSINOPHILS # (AUTO) 0.1 K/uL (0.0-0.7); EOSINOPHILS % (AUTO) 1.5 % (0.0-6.0); HEMATOCRIT 27 % (39-51); HEMOGLOBIN 8.8 g/dL (13.5-17.5); LYMPHOCYTES # (AUTO) 1.3 K/uL (0.8-4.8); LYMPHOCYTES % (AUTO) 14.3 % (20.0-44.0); MEAN CORPUSCULAR HEMOGLOBIN 29 PG (26.0-33.0); MEAN CORPUSCULAR HGB CONC 33 g/dl (31.0-36.0); MEAN CORPUSCULAR VOLUME 88 fL (80-96); MONOCYTES # (AUTO) 0.9 K/uL (0.1-1.30); MONOCYTES % (AUTO) 10.2 % (2.0-12.0); NEUTROPHILS # (AUTO) 6.6 K/uL (1.8-8.9); NEUTROPHILS % (AUTO) 73.1 % (43.0-81.0); PLATELET COUNT (AUTO) 177 K/uL (150-450); RED BLOOD CELL COUNT(AUTO) 3.06 MIL/uL (4.5-6.0); RED CELL DISTRIBUTION WIDTH 18.8 % (11.5-15.0)
[2022-11-16 06:17] LABS: CALCIUM, SERUM 7.8 mg/dL (8.5-10.1); CREATININE 2.7 mg/dL (0.6-1.3); MAGNESIUM 2.4 mg/dL (1.8-2.4); PHOSPHORUS 6.5 mg/dL (2.5-4.9); POTASSIUM 4.2 mmol/L (3.5-5.1)
[2022-11-16] MEDS: BLOOD SUGAR DIAGNOSTIC 1 EACH STRIP IN SCH ×4 (06:33→21:55)
[2022-11-16] MEDS: INSULIN REGULAR, HUMAN 100 UNIT/ML 3 ML VIAL SQ PRN ×3 (06:34→22:08)
[2022-11-16 07:00] VITALS: BP 91/62; TEMP 97.5; O2SAT 99
[2022-11-16] MEDS ORDERED: LIDOCAINE 1%-EPI 1:100,000 20 ML VIAL TP ONE (07:30)
[2022-11-16] MEDS ORDERED: SILVER NITRATE APPLICATOR 1 EA BOX TP PRN (07:30)
[2022-11-16] MEDS: MULTIVIT W/MINERALS 1 TAB TABLET PO SCH (08:28)
[2022-11-16] MEDS: MIDODRINE HCL (5MG) 5 MG TABLET PO SCH ×3 (08:28→17:00)
[2022-11-16] MEDS: LACTULOSE 10 G/15 ML UDC (PYXIS) PO SCH ×2 (08:28→16:59)
[2022-11-16] MEDS: GABAPENTIN 100 MG CAPSULE PO SCH ×2 (08:28→20:30)
[2022-11-16] MEDS: ASCORBIC ACID 500 MG TABLET PO SCH (08:29)
[2022-11-16] MEDS: RIFAXIMIN 550 MG TABLET PO SCH ×2 (08:29→17:00)
[2022-11-16] MEDS: PANTOPRAZOLE 40 MG TABLET.DR PO SCH ×2 (08:29→17:00)
[2022-11-16] MEDS: ZINC SULFATE 220 MG CAPSULE PO SCH (08:29)
[2022-11-16] MEDS: VITAMINS A AND D 56.7 GM TUBE TP SCH (08:35)
[2022-11-16] MEDS: DAKINS QUARTER STRENGTH (0.125%) 480 ML BOTTLE TOP SCH (08:35)
[2022-11-16] MEDS: POVIDONE-IODINE OINT 28.4 GM TUBE TP SCH ×2 (08:36→17:08)
[2022-11-16] MEDS: PROSOURCE / PROSTAT (PYXIS) 30 ML UDC PO SCH (08:36)
[2022-11-16] MEDS: ZINC OXIDE 30 GM TUBE TP SCH (08:36)
[2022-11-16] MEDS: ARGININE/GLUTAMINE/CALCIUM BMB 1 EACH POWD.PACK PO SCH ×2 (08:36→17:09)
[2022-11-16] MEDS: CARVEDILOL 3.125 MG TABLET PO SCH ×2 (09:00→17:00)
[2022-11-16] MEDS: INSULIN GLARGINE, 100 UNIT/ML CARTRIDGE SQ SCH ×2 (10:09→17:28)
[2022-11-16 16:00] VITALS: BP 110/76; TEMP 97.6; O2SAT 94
[2022-11-16 20:00] VITALS: BP 118/72; TEMP 98.2; O2SAT 97
[2022-11-16 20:28] LABS: BASOPHILS # (AUTO) 0.1 K/uL (0.0-0.2); BASOPHILS % (AUTO) 0.7 % (0.0-2.0); EOSINOPHILS # (AUTO) 0.2 K/uL (0.0-0.7); EOSINOPHILS % (AUTO) 1.9 % (0.0-6.0); HEMATOCRIT 31 % (39-51); HEMOGLOBIN 10.1 g/dL (13.5-17.5); LYMPHOCYTES # (AUTO) 1.3 K/uL (0.8-4.8); LYMPHOCYTES % (AUTO) 13.6 % (20.0-44.0); MEAN CORPUSCULAR HEMOGLOBIN 29 PG (26.0-33.0); MEAN CORPUSCULAR HGB CONC 33 g/dl (31.0-36.0); MEAN CORPUSCULAR VOLUME 89 fL (80-96); MONOCYTES # (AUTO) 0.9 K/uL (0.1-1.30); MONOCYTES % (AUTO) 9.2 % (2.0-12.0); NEUTROPHILS # (AUTO) 7.3 K/uL (1.8-8.9); NEUTROPHILS % (AUTO) 74.6 % (43.0-81.0); PLATELET COUNT (AUTO) 211 K/uL (150-450); RED CELL DISTRIBUTION WIDTH 19.1 % (11.5-15.0); WHITE BLOOD COUNT (AUTO) 9.7 K/uL (4.3-11.0)
[2022-11-16 20:42] LABS: CALCIUM, SERUM 7.9 mg/dL (8.5-10.1); CREATININE 2.7 mg/dL (0.6-1.3); POTASSIUM 4.7 mmol/L (3.5-5.1)
[2022-11-16 20:50] LABS: INR 1.37 (0.91-1.10); PROTHROMBIN TIME 14.2 SECS (9.2-11.1)
[2022-11-17] MEDS: MEROPENEM 1 G in IV NS 0.9% 100 ML IV SCH (04:45)
[2022-11-17] MEDS: CLINDAMYCIN HCL 150 MG CAPSULE PO SCH ×3 (04:56→21:14)
[2022-11-17 05:47] LABS: BASOPHILS # (AUTO) 0.1 K/uL (0.0-0.2); BASOPHILS % (AUTO) 0.7 % (0.0-2.0); EOSINOPHILS # (AUTO) 0.2 K/uL (0.0-0.7); EOSINOPHILS % (AUTO) 2.1 % (0.0-6.0); HEMATOCRIT 28 % (39-51); HEMOGLOBIN 9.1 g/dL (13.5-17.5); LYMPHOCYTES # (AUTO) 1.2 K/uL (0.8-4.8); LYMPHOCYTES % (AUTO) 13.4 % (20.0-44.0); MEAN CORPUSCULAR HEMOGLOBIN 29 PG (26.0-33.0); MEAN CORPUSCULAR HGB CONC 33 g/dl (31.0-36.0); MEAN CORPUSCULAR VOLUME 87 fL (80-96); MONOCYTES # (AUTO) 0.8 K/uL (0.1-1.30); MONOCYTES % (AUTO) 8.8 % (2.0-12.0); NEUTROPHILS # (AUTO) 6.6 K/uL (1.8-8.9); PLATELET COUNT (AUTO) 189 K/uL (150-450); RED BLOOD CELL COUNT(AUTO) 3.16 MIL/uL (4.5-6.0); RED CELL DISTRIBUTION WIDTH 18.1 % (11.5-15.0); WHITE BLOOD COUNT (AUTO) 8.7 K/uL (4.3-11.0)
[2022-11-17] MEDS ORDERED: FENTANYL PF 100MCG/2ML AMPUL ONE (06:09)
[2022-11-17] MEDS ORDERED: HEPARIN SODIUM, PORCINE 1,000 UNIT/ML VIAL ONE (06:12)
[2022-11-17] MEDS ORDERED: IOHEXOL 240MG/ML 0 ML IV ONE (06:12)
[2022-11-17] MEDS ORDERED: LIDOCAINE 1% INJ 50 ML MDV IJ ONE (06:12)
[2022-11-17 06:13] LABS: ALBUMIN 1.6 g/dL (3.4-5.0); BILIRUBIN,TOTAL 0.3 mg/dL (0.2-1.0); CALCIUM, SERUM 7.8 mg/dL (8.5-10.1); CREATININE 2.7 mg/dL (0.6-1.3); MAGNESIUM 2.4 mg/dL (1.8-2.4); PHOSPHORUS 7.6 mg/dL (2.5-4.9); POTASSIUM 4.8 mmol/L (3.5-5.1); TOTAL PROTEIN, SERUM 7.1 g/dL (6.4-8.2)
[2022-11-17] MEDS ORDERED: ANESTHESIA TRAY IN PYXIS 1 EA TRAY MC ONE (06:13)
[2022-11-17] MEDS: BLOOD SUGAR DIAGNOSTIC 1 EACH STRIP IN SCH ×4 (07:30→21:58)
[2022-11-17 08:00] VITALS: BP 109/82; TEMP 98.2; O2SAT 99
[2022-11-17 08:07] LABS: HEPATITIS B CORE AB, IgM Negative (Negative); HEPATITIS B CORE AB, TOTAL Negative (Negative); HEPATITIS B SURFACE AB Non Reactive (.)
[2022-11-17] MEDS: PANTOPRAZOLE 40 MG TABLET.DR PO SCH ×2 (08:56→17:24)
[2022-11-17] MEDS: RIFAXIMIN 550 MG TABLET PO SCH ×2 (08:56→17:24)
[2022-11-17] MEDS: ASCORBIC ACID 500 MG TABLET PO SCH (08:56)
[2022-11-17] MEDS: ZINC SULFATE 220 MG CAPSULE PO SCH (08:56)
[2022-11-17] MEDS: LACTULOSE 10 G/15 ML UDC (PYXIS) PO SCH ×2 (08:56→17:24)
[2022-11-17] MEDS: PROSOURCE / PROSTAT (PYXIS) 30 ML UDC PO SCH (08:57)
[2022-11-17] MEDS: MULTIVIT W/MINERALS 1 TAB TABLET PO SCH (08:57)
[2022-11-17] MEDS: GABAPENTIN 100 MG CAPSULE PO SCH ×2 (08:57→21:13)
[2022-11-17] MEDS: ARGININE/GLUTAMINE/CALCIUM BMB 1 EACH POWD.PACK PO SCH ×2 (08:57→17:26)
[2022-11-17] MEDS: MIDODRINE HCL (5MG) 5 MG TABLET PO SCH ×3 (08:58→17:24)
[2022-11-17] MEDS: DAKINS QUARTER STRENGTH (0.125%) 480 ML BOTTLE TOP SCH (08:59)
[2022-11-17] MEDS: CARVEDILOL 3.125 MG TABLET PO SCH ×2 (09:00→17:00)
[2022-11-17] MEDS: POVIDONE-IODINE OINT 28.4 GM TUBE TP SCH ×2 (09:00→17:27)
[2022-11-17] MEDS: ZINC OXIDE 30 GM TUBE TP SCH (09:00)
[2022-11-17] MEDS: VITAMINS A AND D 56.7 GM TUBE TP SCH (09:00)
[2022-11-17] MEDS: INSULIN GLARGINE, 100 UNIT/ML CARTRIDGE SQ SCH ×2 (09:34→17:30)
[2022-11-17] MEDS: INSULIN REGULAR, HUMAN 100 UNIT/ML 3 ML VIAL SQ PRN ×3 (12:19→21:36)
[2022-11-17 16:00] VITALS: BP 107/77; TEMP 98.6; O2SAT 99
[2022-11-17 20:00] VITALS: BP 133/87; TEMP 97.5; O2SAT 96
[2022-11-17] MEDS: MEROPENEM 500 MG in IV NS 0.9% 50 ML IV SCH (21:14)
[2022-11-18] MEDS: CLINDAMYCIN HCL 150 MG CAPSULE PO SCH ×3 (05:27→21:04)
[2022-11-18] MEDS: BLOOD SUGAR DIAGNOSTIC 1 EACH STRIP IN SCH ×4 (05:50→21:36)
[2022-11-18 08:00] VITALS: BP 107/66; TEMP 98.6; O2SAT 99
[2022-11-18] MEDS: CARVEDILOL 3.125 MG TABLET PO SCH ×2 (08:45→17:00)
[2022-11-18] MEDS: PROSOURCE / PROSTAT (PYXIS) 30 ML UDC PO SCH (08:58)
[2022-11-18] MEDS: LACTULOSE 10 G/15 ML UDC (PYXIS) PO SCH ×2 (08:58→17:19)
[2022-11-18] MEDS: ARGININE/GLUTAMINE/CALCIUM BMB 1 EACH POWD.PACK PO SCH ×2 (08:58→17:18)
[2022-11-18] MEDS: ZINC SULFATE 220 MG CAPSULE PO SCH (08:59)
[2022-11-18] MEDS: ASCORBIC ACID 500 MG TABLET PO SCH (08:59)
[2022-11-18] MEDS: MIDODRINE HCL (5MG) 5 MG TABLET PO SCH ×3 (08:59→17:20)
[2022-11-18] MEDS: PANTOPRAZOLE 40 MG TABLET.DR PO SCH ×2 (08:59→17:20)
[2022-11-18] MEDS: MULTIVIT W/MINERALS 1 TAB TABLET PO SCH (08:59)
[2022-11-18] MEDS: GABAPENTIN 100 MG CAPSULE PO SCH ×2 (09:00→21:04)
[2022-11-18] MEDS: RIFAXIMIN 550 MG TABLET PO SCH ×2 (09:00→17:20)
[2022-11-18] MEDS: MEROPENEM 500 MG in IV NS 0.9% 50 ML IV SCH ×2 (09:08→21:03)
[2022-11-18] MEDS: VITAMINS A AND D 56.7 GM TUBE TP SCH (09:09)
[2022-11-18] MEDS: ZINC OXIDE 30 GM TUBE TP SCH (09:09)
[2022-11-18] MEDS: DAKINS QUARTER STRENGTH (0.125%) 480 ML BOTTLE TOP SCH (09:09)
[2022-11-18] MEDS: POVIDONE-IODINE OINT 28.4 GM TUBE TP SCH ×2 (09:10→17:21)
[2022-11-18] MEDS: INSULIN GLARGINE, 100 UNIT/ML CARTRIDGE SQ SCH ×2 (09:17→17:26)
[2022-11-18] MEDS: INSULIN REGULAR, HUMAN 100 UNIT/ML 3 ML VIAL SQ PRN ×3 (12:02→21:30)
[2022-11-18 16:00] VITALS: BP 103/71; TEMP 98.2; O2SAT 97
[2022-11-18 20:00] VITALS: BP 106/61; TEMP 99; O2SAT 100
[2022-11-19] MEDS: CLINDAMYCIN HCL 150 MG CAPSULE PO SCH ×3 (05:05→20:54)
[2022-11-19] MEDS: BLOOD SUGAR DIAGNOSTIC 1 EACH STRIP IN SCH ×4 (07:10→22:00)
[2022-11-19 07:30] VITALS: BP 110/72; TEMP 98.2; O2SAT 96
[2022-11-19] MEDS: MEROPENEM 500 MG in IV NS 0.9% 50 ML IV SCH ×2 (08:45→21:28)
[2022-11-19] MEDS: CARVEDILOL 3.125 MG TABLET PO SCH ×2 (08:46→16:59)
[2022-11-19] MEDS: LACTULOSE 10 G/15 ML UDC (PYXIS) PO SCH ×2 (08:46→16:59)
[2022-11-19] MEDS: GABAPENTIN 100 MG CAPSULE PO SCH ×2 (08:47→20:55)
[2022-11-19] MEDS: RIFAXIMIN 550 MG TABLET PO SCH ×2 (08:47→17:00)
[2022-11-19] MEDS: MULTIVIT W/MINERALS 1 TAB TABLET PO SCH (08:47)
[2022-11-19] MEDS: PROSOURCE / PROSTAT (PYXIS) 30 ML UDC PO SCH (08:47)
[2022-11-19] MEDS: ARGININE/GLUTAMINE/CALCIUM BMB 1 EACH POWD.PACK PO SCH ×2 (08:47→17:00)
[2022-11-19] MEDS: MIDODRINE HCL (5MG) 5 MG TABLET PO SCH ×3 (08:47→17:00)
[2022-11-19] MEDS: PANTOPRAZOLE 40 MG TABLET.DR PO SCH ×2 (08:47→17:00)
[2022-11-19] MEDS: ASCORBIC ACID 500 MG TABLET PO SCH (08:47)
[2022-11-19] MEDS: ZINC SULFATE 220 MG CAPSULE PO SCH (08:48)
[2022-11-19] MEDS: INSULIN GLARGINE, 100 UNIT/ML CARTRIDGE SQ SCH ×2 (08:48→17:00)
[2022-11-19] MEDS: DAKINS QUARTER STRENGTH (0.125%) 480 ML BOTTLE TOP SCH (08:54)
[2022-11-19] MEDS: VITAMINS A AND D 56.7 GM TUBE TP SCH (08:55)
[2022-11-19] MEDS: POVIDONE-IODINE OINT 28.4 GM TUBE TP SCH ×2 (08:55→17:02)
[2022-11-19] MEDS: ZINC OXIDE 30 GM TUBE TP SCH (08:55)
[2022-11-19] MEDS: INSULIN REGULAR, HUMAN 100 UNIT/ML 3 ML VIAL SQ PRN ×3 (12:00→22:04)
[2022-11-19 16:00] VITALS: BP 108/76; TEMP 97.5; O2SAT 99
[2022-11-19 20:00] VITALS: BP 121/80; TEMP 97.9; O2SAT 99
[2022-11-20] MEDS: CLINDAMYCIN HCL 150 MG CAPSULE PO SCH ×3 (04:12→20:30)
[2022-11-20 05:50] LABS: BASOPHILS # (AUTO) 0.1 K/uL (0.0-0.2); BASOPHILS % (AUTO) 1.1 % (0.0-2.0); EOSINOPHILS # (AUTO) 0.2 K/uL (0.0-0.7); EOSINOPHILS % (AUTO) 3.7 % (0.0-6.0); HEMATOCRIT 27 % (39-51); HEMOGLOBIN 8.7 g/dL (13.5-17.5); LYMPHOCYTES # (AUTO) 1.2 K/uL (0.8-4.8); LYMPHOCYTES % (AUTO) 18.1 % (20.0-44.0); MEAN CORPUSCULAR HEMOGLOBIN 29 PG (26.0-33.0); MEAN CORPUSCULAR HGB CONC 33 g/dl (31.0-36.0); MEAN CORPUSCULAR VOLUME 91 fL (80-96); MONOCYTES # (AUTO) 0.7 K/uL (0.1-1.30); MONOCYTES % (AUTO) 10.7 % (2.0-12.0); NEUTROPHILS # (AUTO) 4.4 K/uL (1.8-8.9); NEUTROPHILS % (AUTO) 66.4 % (43.0-81.0); PLATELET COUNT (AUTO) 130 K/uL (150-450); RED BLOOD CELL COUNT(AUTO) 2.97 MIL/uL (4.5-6.0); RED CELL DISTRIBUTION WIDTH 18.6 % (11.5-15.0); WHITE BLOOD COUNT (AUTO) 6.7 K/uL (4.3-11.0)
[2022-11-20 06:24] LABS: CALCIUM, SERUM 7.4 mg/dL (8.5-10.1); CREATININE 3.1 mg/dL (0.6-1.3); MAGNESIUM 2.5 mg/dL (1.8-2.4); PHOSPHORUS 7.9 mg/dL (2.5-4.9); POTASSIUM 4.4 mmol/L (3.5-5.1)
[2022-11-20] MEDS: BLOOD SUGAR DIAGNOSTIC 1 EACH STRIP IN SCH ×4 (06:42→22:09)
[2022-11-20] MEDS: INSULIN REGULAR, HUMAN 100 UNIT/ML 3 ML VIAL SQ PRN ×4 (06:43→22:10)
[2022-11-20 08:00] VITALS: BP 115/86; TEMP 97.2; O2SAT 98
[2022-11-20] MEDS: MEROPENEM 500 MG in IV NS 0.9% 50 ML IV SCH ×2 (08:34→20:30)
[2022-11-20] MEDS: PANTOPRAZOLE 40 MG TABLET.DR PO SCH ×2 (08:53→16:26)
[2022-11-20] MEDS: ZINC SULFATE 220 MG CAPSULE PO SCH (08:53)
[2022-11-20] MEDS: LACTULOSE 10 G/15 ML UDC (PYXIS) PO SCH ×2 (08:53→16:24)
[2022-11-20] MEDS: MULTIVIT W/MINERALS 1 TAB TABLET PO SCH (08:53)
[2022-11-20] MEDS: RIFAXIMIN 550 MG TABLET PO SCH ×2 (08:54→16:24)
[2022-11-20] MEDS: MIDODRINE HCL (5MG) 5 MG TABLET PO SCH ×3 (08:54→16:25)
[2022-11-20] MEDS: GABAPENTIN 100 MG CAPSULE PO SCH ×2 (08:54→20:30)
[2022-11-20] MEDS: CARVEDILOL 3.125 MG TABLET PO SCH ×2 (08:54→16:25)
[2022-11-20] MEDS: ASCORBIC ACID 500 MG TABLET PO SCH (08:54)
[2022-11-20] MEDS: PROSOURCE / PROSTAT (PYXIS) 30 ML UDC PO SCH (08:57)
[2022-11-20] MEDS: ARGININE/GLUTAMINE/CALCIUM BMB 1 EACH POWD.PACK PO SCH ×2 (08:57→16:26)
[2022-11-20] MEDS: INSULIN GLARGINE, 100 UNIT/ML CARTRIDGE SQ SCH ×2 (09:00→17:00)
[2022-11-20] MEDS: VITAMINS A AND D 56.7 GM TUBE TP SCH (09:05)
[2022-11-20] MEDS: DAKINS QUARTER STRENGTH (0.125%) 480 ML BOTTLE TOP SCH (09:05)
[2022-11-20] MEDS: ZINC OXIDE 30 GM TUBE TP SCH (09:05)
[2022-11-20] MEDS: POVIDONE-IODINE OINT 28.4 GM TUBE TP SCH ×2 (09:06→17:00)
[2022-11-20 16:00] VITALS: BP 107/72; TEMP 98.2; O2SAT 100
[2022-11-20] MEDS: ALBUMIN 25% 25 GM in PREMIX 1 EA IV PRN (16:11)
[2022-11-20 20:00] VITALS: BP 103/63; TEMP 98.1; O2SAT 98
[2022-11-21] MEDS: CLINDAMYCIN HCL 150 MG CAPSULE PO SCH ×3 (04:17→20:52)
[2022-11-21] MEDS: BLOOD SUGAR DIAGNOSTIC 1 EACH STRIP IN SCH ×4 (06:27→21:46)
[2022-11-21] MEDS: INSULIN REGULAR, HUMAN 100 UNIT/ML 3 ML VIAL SQ PRN ×3 (06:29→21:46)
[2022-11-21 08:00] VITALS: BP 99/86; TEMP 98.1; O2SAT 96
[2022-11-21] MEDS: SEVELAMER CARBONATE 800 MG TABLET PO SCH ×3 (08:39→17:43)
[2022-11-21] MEDS: MEROPENEM 500 MG in IV NS 0.9% 50 ML IV SCH ×2 (08:47→20:48)
[2022-11-21] MEDS: LACTULOSE 10 G/15 ML UDC (PYXIS) PO SCH ×2 (08:47→17:43)
[2022-11-21] MEDS: GABAPENTIN 100 MG CAPSULE PO SCH ×2 (08:48→20:52)
[2022-11-21] MEDS: ARGININE/GLUTAMINE/CALCIUM BMB 1 EACH POWD.PACK PO SCH ×2 (08:48→17:45)
[2022-11-21] MEDS: MIDODRINE HCL (5MG) 5 MG TABLET PO SCH ×3 (08:49→17:00)
[2022-11-21] MEDS: PROSOURCE / PROSTAT (PYXIS) 30 ML UDC PO SCH (08:49)
[2022-11-21] MEDS: ASCORBIC ACID 500 MG TABLET PO SCH (08:49)
[2022-11-21] MEDS: RIFAXIMIN 550 MG TABLET PO SCH ×2 (08:49→17:44)
[2022-11-21] MEDS: PANTOPRAZOLE 40 MG TABLET.DR PO SCH ×2 (08:49→17:45)
[2022-11-21] MEDS: ZINC SULFATE 220 MG CAPSULE PO SCH (08:49)
[2022-11-21] MEDS: MULTIVIT W/MINERALS 1 TAB TABLET PO SCH (08:49)
[2022-11-21] MEDS: VITAMINS A AND D 56.7 GM TUBE TP SCH (08:51)
[2022-11-21] MEDS: DAKINS QUARTER STRENGTH (0.125%) 480 ML BOTTLE TOP SCH (08:52)
[2022-11-21] MEDS: POVIDONE-IODINE OINT 28.4 GM TUBE TP SCH ×2 (08:53→17:46)
[2022-11-21] MEDS: ZINC OXIDE 30 GM TUBE TP SCH (08:53)
[2022-11-21] MEDS: CARVEDILOL 3.125 MG TABLET PO SCH ×2 (08:54→17:44)
[2022-11-21] MEDS: INSULIN GLARGINE, 100 UNIT/ML CARTRIDGE SQ SCH ×2 (09:23→17:00)
[2022-11-21 16:03] VITALS: BP 110/73; TEMP 98.2; O2SAT 96
[2022-11-21 20:00] VITALS: BP 98/66; TEMP 98.4; O2SAT 97
[2022-11-22] MEDS: CLINDAMYCIN HCL 150 MG CAPSULE PO SCH ×3 (04:40→21:09)
[2022-11-22] MEDS: BLOOD SUGAR DIAGNOSTIC 1 EACH STRIP IN SCH ×4 (06:31→21:34)
[2022-11-22] MEDS: INSULIN REGULAR, HUMAN 100 UNIT/ML 3 ML VIAL SQ PRN ×2 (06:31→21:34)
[2022-11-22 07:00] VITALS: BP 97/70; TEMP 97.5; O2SAT 99
[2022-11-22] MEDS: SEVELAMER CARBONATE 800 MG TABLET PO SCH ×3 (08:41→17:16)
[2022-11-22] MEDS: ASCORBIC ACID 500 MG TABLET PO SCH (08:41)
[2022-11-22] MEDS: MULTIVIT W/MINERALS 1 TAB TABLET PO SCH (08:42)
[2022-11-22] MEDS: GABAPENTIN 100 MG CAPSULE PO SCH ×2 (08:42→21:09)
[2022-11-22] MEDS: PANTOPRAZOLE 40 MG TABLET.DR PO SCH ×2 (08:42→17:11)
[2022-11-22] MEDS: MIDODRINE HCL (5MG) 5 MG TABLET PO SCH ×4 (08:43→17:11)
[2022-11-22] MEDS: LACTULOSE 10 G/15 ML UDC (PYXIS) PO SCH ×2 (08:43→17:00)
[2022-11-22] MEDS: CARVEDILOL 3.125 MG TABLET PO SCH ×2 (08:43→17:00)
[2022-11-22] MEDS: RIFAXIMIN 550 MG TABLET PO SCH ×2 (08:44→17:12)
[2022-11-22] MEDS: PROSOURCE / PROSTAT (PYXIS) 30 ML UDC PO SCH (08:48)
[2022-11-22] MEDS: ARGININE/GLUTAMINE/CALCIUM BMB 1 EACH POWD.PACK PO SCH ×2 (08:48→17:09)
[2022-11-22] MEDS: INSULIN GLARGINE, 100 UNIT/ML CARTRIDGE SQ SCH ×2 (08:52→17:00)
[2022-11-22] MEDS: ZINC SULFATE 220 MG CAPSULE PO SCH (08:54)
[2022-11-22] MEDS: MEROPENEM 500 MG in IV NS 0.9% 50 ML IV SCH ×2 (09:12→21:09)
[2022-11-22] MEDS: VITAMINS A AND D 56.7 GM TUBE TP SCH (09:12)
[2022-11-22] MEDS: ZINC OXIDE 30 GM TUBE TP SCH (09:12)
[2022-11-22] MEDS: DAKINS QUARTER STRENGTH (0.125%) 480 ML BOTTLE TOP SCH (09:12)
[2022-11-22] MEDS: POVIDONE-IODINE OINT 28.4 GM TUBE TP SCH ×2 (09:13→17:12)
[2022-11-22 16:00] VITALS: BP 104/77; TEMP 97.4; O2SAT 98
[2022-11-22] MEDS: ALBUMIN 25% 25 GM in PREMIX 1 EA IV PRN (17:40)
[2022-11-22 20:00] VITALS: BP 99/69; TEMP 97.6; O2SAT 96
[2022-11-23] MEDS: CLINDAMYCIN HCL 150 MG CAPSULE PO SCH ×2 (05:34→12:08)
[2022-11-23 06:36] LABS: HEMOGLOBIN 8.1 g/dL (13.5-17.5)
[2022-11-23] MEDS: BLOOD SUGAR DIAGNOSTIC 1 EACH STRIP IN SCH ×3 (06:37→18:06)
[2022-11-23] MEDS: INSULIN REGULAR, HUMAN 100 UNIT/ML 3 ML VIAL SQ PRN ×2 (06:38→11:56)
[2022-11-23 06:41] LABS: CALCIUM, SERUM 7.7 mg/dL (8.5-10.1); CREATININE 3.3 mg/dL (0.6-1.3)
[2022-11-23 08:00] VITALS: BP 90/66; TEMP 98.1; O2SAT 96
[2022-11-23] MEDS: CARVEDILOL 3.125 MG TABLET PO SCH ×2 (09:00→17:00)
[2022-11-23] MEDS: INSULIN GLARGINE, 100 UNIT/ML CARTRIDGE SQ SCH ×2 (09:00→17:00)
[2022-11-23] MEDS: RIFAXIMIN 550 MG TABLET PO SCH ×2 (09:05→18:04)
[2022-11-23] MEDS: SEVELAMER CARBONATE 800 MG TABLET PO SCH ×3 (09:05→18:05)
[2022-11-23] MEDS: ZINC SULFATE 220 MG CAPSULE PO SCH (09:05)
[2022-11-23] MEDS: LACTULOSE 10 G/15 ML UDC (PYXIS) PO SCH ×2 (09:05→17:54)
[2022-11-23] MEDS: ASCORBIC ACID 500 MG TABLET PO SCH (09:05)
[2022-11-23] MEDS: PANTOPRAZOLE 40 MG TABLET.DR PO SCH ×2 (09:06→18:05)
[2022-11-23] MEDS: MULTIVIT W/MINERALS 1 TAB TABLET PO SCH (09:06)
[2022-11-23] MEDS: GABAPENTIN 100 MG CAPSULE PO SCH (09:07)
[2022-11-23] MEDS: MIDODRINE HCL (5MG) 5 MG TABLET PO SCH ×3 (09:07→18:02)
[2022-11-23] MEDS: MEROPENEM 500 MG in IV NS 0.9% 50 ML IV SCH (09:09)
[2022-11-23] MEDS: ARGININE/GLUTAMINE/CALCIUM BMB 1 EACH POWD.PACK PO SCH ×2 (09:39→18:04)
[2022-11-23] MEDS: PROSOURCE / PROSTAT (PYXIS) 30 ML UDC PO SCH (09:39)
[2022-11-23] MEDS: VITAMINS A AND D 56.7 GM TUBE TP SCH (09:40)
[2022-11-23] MEDS: DAKINS QUARTER STRENGTH (0.125%) 480 ML BOTTLE TOP SCH (09:41)
[2022-11-23] MEDS: ZINC OXIDE 30 GM TUBE TP SCH (09:41)
[2022-11-23] MEDS: POVIDONE-IODINE OINT 28.4 GM TUBE TP SCH ×2 (09:41→17:00)
[2022-11-23 15:57] VITALS: BP 103/82; TEMP 98.4; O2SAT 97
[2022-11-23 18:02] VITALS: BP 103/82
[2022-11-24] MEDS ORDERED: LIDOCAINE 0.5%-EPI 1:200,000 50 ML VIAL TP ONE (07:30)
== END 2022-11-23 20:10 | DRG 951 ==
LOC: ER 08:43 → TELE 13:14 → MED 11-10 17:28
PROVIDERS: ADMIT Student in an Organized Health Care Education/Training Program; ATTEND Student in an Organized Health Care Education/Training Program
PROC: 0W9G3ZZ Drainage of Peritoneal Cavity, Percutaneous Approach (ICD-10-PCS; principal; 2022-11-03)
PROC: 30233N1 Transfusion of Nonautologous Red Blood Cells into Peripheral Vein, Percutaneous Approach (ICD-10-PCS; 2022-11-03)
PROC: 0KBN3ZZ Excision of Right Hip Muscle, Percutaneous Approach (ICD-10-PCS; 2022-11-05)
PROC: 06L38CZ Occlusion of Esophageal Vein with Extraluminal Device, Via Natural or Artificial Opening Endoscopic (ICD-10-PCS; 2022-11-09)
PROC: 0JH63XZ Insertion of Tunneled Vascular Access Device into Chest Subcutaneous Tissue and Fascia, Percutaneous Approach (ICD-10-PCS; 2022-11-17)
PROC: 02HV33Z Insertion of Infusion Device into Superior Vena Cava, Percutaneous Approach (ICD-10-PCS; 2022-11-17)
PROC: B518ZZA Fluoroscopy of Superior Vena Cava, Guidance (ICD-10-PCS; 2022-11-17)
PROC: 5A1D70Z Performance of Urinary Filtration, Intermittent, Less than 6 Hours Per Day (ICD-10-PCS; 2022-11-17)
DX: K72.90 Hepatic failure, unspecified without coma (principal); N17.0 Acute kidney failure with tubular necrosis; G93.41 Metabolic encephalopathy; I85.11 Secondary esophageal varices with bleeding; E43 Unspecified severe protein-calorie malnutrition; L89.214 Pressure ulcer of right hip, stage 4; D68.4 Acquired coagulation factor deficiency; D69.1 Qualitative platelet defects; K70.31 Alcoholic cirrhosis of liver with ascites; K76.6 Portal hypertension; E11.22 Type 2 diabetes mellitus with diabetic chronic kidney disease; D63.8 Anemia in other chronic diseases classified elsewhere; E87.1 Hypo-osmolality and hyponatremia; E11.42 Type 2 diabetes mellitus with diabetic polyneuropathy; E86.0 Dehydration; N39.0 Urinary tract infection, site not specified; B96.1 Klebsiella pneumoniae [K. pneumoniae] as the cause of diseases classified elsewhere; Z16.24 Resistance to multiple antibiotics; R04.0 Epistaxis; I25.2 Old myocardial infarction; K21.9 Gastro-esophageal reflux disease without esophagitis; I12.9 Hypertensive chronic kidney disease with stage 1 through stage 4 chronic kidney disease, or unspecified chronic kidney disease; N18.9 Chronic kidney disease, unspecified; K31.89 Other diseases of stomach and duodenum; E11.65 Type 2 diabetes mellitus with hyperglycemia; Z89.412 Acquired absence of left great toe; E11.621 Type 2 diabetes mellitus with foot ulcer; L97.528 Non-pressure chronic ulcer of other part of left foot with other specified severity; L97.519 Non-pressure chronic ulcer of other part of right foot with unspecified severity; L89.890 Pressure ulcer of other site, unstageable; K92.0 Hematemesis; Z79.4 Long term (current) use of insulin; Z79.02 Long term (current) use of antithrombotics/antiplatelets; Z79.899 Other long term (current) drug therapy
CPT/HCPCS: 36415; 49083; 71045-TC; 76705-TC; 80048-TC; 80053-TC; 80076-TC; 81001; 82140-TC; 82272-TC; 82570-TC; 82962-TC; 83690-TC; 83735-TC; 84100-TC; 84300-TC; 85025-TC; 85027-TC; 85610-TC; 85730-TC; 86704; 86705; 86706; 86803; 86850-TC; 87086-TC; 87340; 90935-TC; 92526; 92611-TC; 97110-TC; 97112-TC; 97530-TC; A4216; A4217; A4223; A6253; A6403; C1750; C1757; C9113; G0378; J0690; J0696; J1644; J1815; J2185; J2405; J2597; J2704; J3010; J3490; J7030; J7050; J7060; P9016; P9047; Q9966

== ENCOUNTER 2022-11-26 17:18 | Emergency (ER) | payer OTHER ==
[~2022-11-26] VITALS: Ht 182.9 cm; Wt 85.3 kg
[~2022-11-26 17:18] MED LIST: ASCO-340 PO; ASPI-992 PO; CARV3.122 PO; CLOP75TA15 PO; FERR325T23 PO; GABA-532 PO; INSU100V39 SQ; INSU100V7 SQ; MENT113O6 TP; MIDO10TA PO; MULT-213 PO; OXYC5TAB3 PO; PANT40TA2 PO; PANT40TA49 PO; PETR113O TP; POVI3780 TP; PROTEIN LIQUID PO; ZINC220C6 PO
[2022-11-26 18:11] LABS: BASOPHILS # (AUTO) 0.1 K/uL (0.0-0.2); EOSINOPHILS # (AUTO) 0.1 K/uL (0.0-0.7); HEMATOCRIT 25 % (39-51); HEMOGLOBIN 8.3 g/dL (13.5-17.5); LYMPHOCYTES # (AUTO) 1.1 K/uL (0.8-4.8); LYMPHOCYTES % (AUTO) 13.8 % (20.0-44.0); MEAN CORPUSCULAR HEMOGLOBIN 29 PG (26.0-33.0); MEAN CORPUSCULAR HGB CONC 33 g/dl (31.0-36.0); MEAN CORPUSCULAR VOLUME 87 fL (80-96); MONOCYTES # (AUTO) 0.8 K/uL (0.1-1.30); MONOCYTES % (AUTO) 9.3 % (2.0-12.0); NEUTROPHILS # (AUTO) 6.1 K/uL (1.8-8.9); NEUTROPHILS % (AUTO) 74.9 % (43.0-81.0); PLATELET COUNT (AUTO) 189 K/uL (150-450); RED BLOOD CELL COUNT(AUTO) 2.88 MIL/uL (4.5-6.0); RED CELL DISTRIBUTION WIDTH 18.8 % (11.5-15.0); WHITE BLOOD COUNT (AUTO) 8.2 K/uL (4.3-11.0)
[2022-11-26 18:28] LABS: ALBUMIN 1.7 g/dL (3.4-5.0); BILIRUBIN,DIRECT 0.3 mg/dL (0.0-0.2); BILIRUBIN,TOTAL 0.6 mg/dL (0.2-1.0); CALCIUM, SERUM 7.6 mg/dL (8.5-10.1); CREATININE 3.6 mg/dL (0.6-1.3)
[2022-11-26 18:55] LABS: INR 1.46 (0.91-1.10); PROTHROMBIN TIME 15.1 SECS (9.2-11.1)
[2022-11-26 18:57] LABS: PARTIAL THROMBOPLASTIN TIME 154.3 SEC (24.3-34.3)
[2022-11-26] MEDS ORDERED: ACET-868 PO (19:24)
[2022-11-26] MEDS ORDERED: DOCU100C36 PO (19:24)
[2022-11-26] MEDS ORDERED: [UNRECOGNIZED DRUG - OTHER] TP (19:24)
[2022-11-26] MEDS ORDERED: OXYC5TAB3 PO (19:24)
[2022-11-26] MEDS ORDERED: SENN-261 PO (19:24)
[2022-11-26] MEDS ORDERED: SEVE800T28 PO (19:24)
[2022-11-26] MEDS ORDERED: MIDODRINE HCL (5MG) 5 MG TABLET ONE (20:26)
[2022-11-26] MEDS: MIDODRINE HCL (5MG) 5 MG TABLET PO STA (20:29)
[2022-11-26 21:07] LABS: ANISOCYTOSIS 1+; BAND % (MANUAL) 1 % (0.0-5.0); EOSINOPHILS % (MANUAL) 1 % (0-4); LYMPHOCYTES % (MANUAL) 14 % (16-48); MONOCYTES % (MANUAL) 5 % (0-11.0); NEUTROPHILS % (MANUAL) 79 (42-76); PLATELET ESTIMATE ADEQUATE; ROULEAUX 1+
[2022-11-26 21:20] VITALS: BP 92/71; TEMP 97.8; O2SAT 98
== END 2022-11-26 21:23 ==
LOC: ER 17:18
DX: I12.9 Hypertensive chronic kidney disease with stage 1 through stage 4 chronic kidney disease, or unspecified chronic kidney disease (principal); N18.9 Chronic kidney disease, unspecified; R18.8 Other ascites; K72.90 Hepatic failure, unspecified without coma; E87.1 Hypo-osmolality and hyponatremia; D64.9 Anemia, unspecified; K21.9 Gastro-esophageal reflux disease without esophagitis; E11.22 Type 2 diabetes mellitus with diabetic chronic kidney disease; Z79.899 Other long term (current) drug therapy; Z79.4 Long term (current) use of insulin
CPT/HCPCS: 36415; 80048-TC; 80076-TC; 83690-TC; 85025-TC; 85730-TC

== ENCOUNTER 2022-11-28 17:28 | Emergency (ER) | payer OTHER ==
[~2022-11-28] VITALS: Ht 165.1 cm; Wt 77.1 kg
[~2022-11-28 17:28] MED LIST changes: +ACET-868 PO; -CARV3.122 PO; +DOCU100C36 PO; -PANT40TA49 PO; +SENN-261 PO; +SEVE800T28 PO; +[UNRECOGNIZED DRUG - OTHER] TP
[2022-11-28 18:40] LABS: BASOPHILS # (AUTO) 0.1 K/uL (0.0-0.2); BASOPHILS % (AUTO) 1.1 % (0.0-2.0); EOSINOPHILS # (AUTO) 0.1 K/uL (0.0-0.7); EOSINOPHILS % (AUTO) 0.9 % (0.0-6.0); LYMPHOCYTES # (AUTO) 1.9 K/uL (0.8-4.8); MEAN CORPUSCULAR HEMOGLOBIN 29 PG (26.0-33.0); MEAN CORPUSCULAR HGB CONC 32 g/dl (31.0-36.0); MEAN CORPUSCULAR VOLUME 90 fL (80-96); MONOCYTES # (AUTO) 1.1 K/uL (0.1-1.30); MONOCYTES % (AUTO) 9.3 % (2.0-12.0); NEUTROPHILS # (AUTO) 8.5 K/uL (1.8-8.9); NEUTROPHILS % (AUTO) 72.7 % (43.0-81.0); PLATELET COUNT (AUTO) 256 K/uL (150-450); RED BLOOD CELL COUNT(AUTO) 2.24 MIL/uL (4.5-6.0); RED CELL DISTRIBUTION WIDTH 19.2 % (11.5-15.0)
[2022-11-28 18:41] LABS: HEMOGLOBIN 6.4 g/dL (13.5-17.5)
[2022-11-28 18:42] LABS: HEMATOCRIT 20 % (39-51); WHITE BLOOD COUNT (AUTO) 11.7 K/uL (4.3-11.0)
[2022-11-28] MEDS ORDERED: POVI3780 TP (18:46)
[2022-11-28] MEDS ORDERED: [UNRECOGNIZED DRUG - OTHER] TOP (18:46)
[2022-11-28] MEDS ORDERED: COLL1POW2 TOP (18:46)
[2022-11-28] MEDS ORDERED: AMIN30LI2 PO (18:46)
[2022-11-28 18:56] LABS: INR 1.35 (0.91-1.10); PARTIAL THROMBOPLASTIN TIME 34.2 SEC (24.3-34.3)
[2022-11-28 18:57] LABS: CALCIUM, SERUM 7.7 mg/dL (8.5-10.1); CREATININE 4.6 mg/dL (0.6-1.3); POTASSIUM 4.8 mmol/L (3.5-5.1)
[2022-11-28 19:00] LABS: ALBUMIN 1.6 g/dL (3.4-5.0); BILIRUBIN,DIRECT 0.2 mg/dL (0.0-0.2); BILIRUBIN,TOTAL 0.4 mg/dL (0.2-1.0); TOTAL PROTEIN, SERUM 6.7 g/dL (6.4-8.2)
[2022-11-28 19:29] LABS: BAND % (MANUAL) 1 % (0.0-5.0); EOSINOPHILS % (MANUAL) 1 % (0-4); LYMPHOCYTES % (MANUAL) 16 % (16-48); MONOCYTES % (MANUAL) 7 % (0-11.0); NEUTROPHILS % (MANUAL) 75 (42-76)
[2022-11-28 19:30] LABS: PLATELET ESTIMATE ADEQUATE
[2022-11-29 00:36] VITALS: BP 93/68; TEMP 98; O2SAT 99
== END 2022-11-29 00:41 | disposition short-term general hospital (02) ==
LOC: ER 17:28
DX: D63.1 Anemia in chronic kidney disease (principal); K21.9 Gastro-esophageal reflux disease without esophagitis; I12.0 Hypertensive chronic kidney disease with stage 5 chronic kidney disease or end stage renal disease; N18.6 End stage renal disease; E11.22 Type 2 diabetes mellitus with diabetic chronic kidney disease; Z79.4 Long term (current) use of insulin; Z79.82 Long term (current) use of aspirin; Z79.899 Other long term (current) drug therapy
CPT/HCPCS: 99291; 36430; 71045; 85025; 80048; 80076; 85007; 36415; 85730; 86850; 86923; J7040; P9016